=== PATIENT | male | born 1945 | race Caucasian/White ===

== ENCOUNTER 2022-09-30 12:34 | Emergency (ER) | payer MEDICARE, OTHER ==
--- NOTE | 2022-09-30 16:31 | ED Physician Documentation ---
History of Present Illness - Stated complaint Stated Complaint: CELLULITIS/EDEMA - Chief complaint Chief Complaint: Ext Problem - History obtained from History obtained from: Patient - Additonal information Additional information: 76-year-old gentleman presents for the evaluation of a painful and itchy rash has been going on for 10 to 15 years in both lower extremities that he thinks is cellulitis. He states that is worse when he eats acid such as vinegar or vitamin C. He was seen at the walk-in clinic last week and started on prednisone which she took for 3 days, but it made him have severe insomnia and anxiety which persists at this point despite stopping the prednisone. Review of Systems Constitutional: denies: Fever, Chills GI: reports: Reviewed and negative : reports: Reviewed and negative PD PAST MEDICAL HISTORY - Present Medications Home Medications: Ambulatory Orders Medication Instructions Recorded Confirmed diazePAM [Valium] 5 - 10 mg PO TID PRN #15 tablet 09/30/22 - Allergies Allergies/Adverse Reactions: Allergies Allergy/AdvReac Type Severity Reaction Status Date / Time Corticosteroids Allergy Unknown Verified 09/30/22 13:04 (Glucocorticoids) PD ED PE NORMAL - Vitals Vital signs reviewed: Yes - General General: Alert and oriented X 3, No acute distress - Extremities Extremities: Other (Venous stasis changes with dusky feet with 4-second capillary refill. Everything is symmetric in the lower extremities, shiny skin and varicosities to both lower extremities.) - Neuro Neuro: Alert and oriented X 3, Normal speech Results - Vitals Vitals: Vital Signs - 24 hr 09/30/22 09/30/22 12:58 16:43 Temperature 36.5 C 36.6 C Heart Rate 72 75 Respiratory 16 16 Rate Blood Pressure 145/88 H 143/82 H O2 Saturation 100 98 Oxygen O2 Source Room air PD MEDICAL DECISION MAKING - ED course ED course: 76-year-old gentleman presents for insomnia related to prednisone and what he thinks is cellulitis but is actually more consistent with venous stasis changes. I recommended topical steroids which she declined based on side effects and needed something for sleep having had Valium in the past which worked well for him. Discussed need for follow-up with vascular surgery. Departure - Departure Disposition: 01 Home, Self Care Clinical Impression: Venous stasis, Insomnia Condition: Good Record reviewed to determine appropriate education?: Yes Instructions: Chronic Venous Insufficiency Prescriptions: diazePAM [Valium] 5 - 10 mg PO TID PRN #15 tablet PRN Reason: Spasms Comments: You were seen today for the problem in your legs which based on your history and physical is more consistent with venous stasis changes than an infection. You declined topical steroids given your previous side effects with those and that is not unreasonable. Try to elevate them as much as possible and I did prescribe some Valium for sleep which I sent to the [facility] in [place] electronically. You should probably follow-up with a vascular surgeon such as the [facility], the phone number is [phone] mi [phone], call tomorrow for the next available appointment. Return for new or worsening symptoms. Do not drink or drive while taking Valium. Discharge Date/Time: 09/30/22 16:43
[2022-09-30 16:45] VITALS: BP 143/82
== END 2022-09-30 16:43 | disposition home or self-care (01) ==
LOC: ED 12:34
DX: I87.8 Other specified disorders of veins (principal); G47.00 Insomnia, unspecified
CPT/HCPCS: 99283

== ENCOUNTER → 2022-09-30 | Outpatient (CLI) | payer MEDICARE, OTHER | END | disposition critical access hospital (66) | LOC: EMS 11:53 | DX: M79.89 Other specified soft tissue disorders (principal); R60.0 Localized edema; M79.605 Pain in left leg; M79.604 Pain in right leg; L29.9 Pruritus, unspecified; Z72.820 Sleep deprivation | CPT/HCPCS: A0425; A0429 ==

== ENCOUNTER 2022-10-16 08:00 | Outpatient (CLI) | payer MEDICARE, OTHER | END 2022-10-16 23:59 | disposition home or self-care (01) | LOC: LAB 08:00 | PROVIDERS: ATTEND Nurse Practitioner | DX: R33.9 Retention of urine, unspecified (principal) | CPT/HCPCS: 87086 ==

== ENCOUNTER 2022-10-16 16:29 | Emergency (ER) | payer MEDICARE, OTHER ==
--- NOTE | 2022-10-16 16:47 | ED Physician Documentation ---
PD HPI MALE - Stated complaint Stated Complaint: M - Chief complaint Chief Complaint: General - History obtained from History obtained from: Patient - History of Present Illness Timing - onset: How many days ago (12) Timing - duration: Days (12) Timing - details: Abrupt onset, Still present Associated symptoms: Unable to urinate (he had had weak stream and urinated small amounts over the past few months, but had sudden urinary retention after getting outpt CT abd/pelvis with IV contrast 12 days ago at [facility] [place]. Had townsend placed then and was in until this morning, when it was removed. The patient has only had mild dribbles.). No: Dysuria Similar symptoms before: Diagnosis (presumed enlarged prostate.) Review of Systems Constitutional: denies: Fever, Chills Nose: denies: Rhinorrhea / runny nose, Congestion Throat: denies: Sore throat Respiratory: denies: Cough Skin: denies: Rash, Lesions PD PAST MEDICAL HISTORY - Past Medical History : Benign prostate hypertrophy - Present Medications Home Medications: Ambulatory Orders Medication Instructions Recorded Confirmed diazePAM [Valium] 5 - 10 mg PO TID PRN #15 tablet 09/30/22 - Allergies Allergies/Adverse Reactions: Allergies Allergy/AdvReac Type Severity Reaction Status Date / Time citric acid Allergy Unknown Verified 10/16/22 16:39 Corticosteroids Allergy Unknown Verified 10/16/22 16:39 (Glucocorticoids) PD ED PE NORMAL - Vitals Vital signs reviewed: Yes - General General: Alert and oriented X 3, No acute distress, Well developed/nourished - Cardiac Cardiac: RRR, No murmur - Respiratory Respiratory: Clear bilaterally - Abdomen Abdomen: Normal bowel sounds, Soft, Non distended, No organomegaly, Other (some tenderness and fullness in suprapubic area/bladder without guarding. ) Results - Vitals Vitals: Vital Signs - 24 hr 10/16/22 10/16/22 16:34 18:17 Temperature 36.9 C 36.1 C L Heart Rate 80 65 Respiratory 18 18 Rate Blood Pressure 167/85 H 156/76 H O2 Saturation 99 98 Oxygen O2 Source Room air PD Medical Decision Making - ED course Complexity details: considered differential (had townsend in and removed this morning at consultation of Urology. Unable to urinate again.Had Rx for Flomax, but not taking it regularly. ), d/w patient Departure - Departure Disposition: 01 Home, Self Care Clinical Impression: Acute urinary retention Condition: Stable Record reviewed to determine appropriate education?: Yes Comments: Your Townsend catheter appears to be draining. There is no blood or clots coming out at this time. Assumedly your trouble urinating is coming from either an enlargement of the prostate or just a dysfunction of the muscle of the bladder having had the previous catheter in for a while. Talk to your urologist about next steps for having it removed. Sometimes they will do bladder training we may have you clamp off the catheter and allow the bladder to fill and on fill to reestablish some of the muscle tone. Would make sense to be on the prostate medicine prescribed by your urologist for at least the next week or so. Nonprescription options for prostate can be saw woodrow or certainly continue with your 2nd pressman. Some more targeted medication for prostate enlargement may be useful in hopes of being able to remove the catheter subsequently and have better urine output. Discharge Date/Time: 10/16/22 18:27
[2022-10-16] MEDS ORDERED: LIDOCAINE 2% URO-JET 5 ML SYRINGE UR STA (17:08)
[2022-10-16 18:18] VITALS: BP 156/76
== END 2022-10-16 18:27 | disposition home or self-care (01) ==
LOC: ED 16:29
DX: R33.9 Retention of urine, unspecified (principal)
CPT/HCPCS: 99283

== ENCOUNTER 2022-10-30 09:00 | Outpatient (CLI) | payer MEDICARE, OTHER | END 2022-10-30 23:59 | disposition critical access hospital (66) | LOC: EMS 09:00 | DX: S61.512A Laceration without foreign body of left wrist, initial encounter (principal); X78.9XXA Intentional self-harm by unspecified sharp object, initial encounter; Y93.89 Activity, other specified | CPT/HCPCS: A0425; A0429 ==

== ENCOUNTER 2022-10-30 09:39 | Emergency (ER) | payer MEDICARE, OTHER ==
--- NOTE | 2022-10-30 10:11 | ED Physician Documentation ---
History of Present Illness - Stated complaint Stated Complaint: L WRIST LAC/MHE - Chief complaint Chief Complaint: MHE - Additonal information Additional information: Patient is 76-year-old male presenting to the emergency department with suicidal ideation and left wrist laceration. Presents via EMS after cutting his wrists With a razor blade. Reports he did this at approximately 4 AM. Reports that he has been feeling suicidal frequently for the last month. States he has had increasing physical and mental health issues ongoing since September of this year including multiple episodes of acute urinary obstruction requiring catheter p lacement, as well as worsening insomnia at home. Reports that he lives with a roommate but that most of his family is in [place]. Denies previous hospitalizations for psychiatric issues or previous suicide attempts. Denies alcohol and drug abuse. Review of Systems Unable to obtain: Other (Psychiatric disturbance) PD PAST MEDICAL HISTORY - Present Medications Home Medications: Ambulatory Orders Medication Instructions Recorded Confirmed diazePAM [Valium] 5 - 10 mg PO TID PRN #15 tablet 09/30/22 - Allergies Allergies/Adverse Reactions: Allergies Allergy/AdvReac Type Severity Reaction Status Date / Time citric acid Allergy Unknown Verified 10/30/22 10:26 Corticosteroids Allergy Unknown Verified 10/30/22 10:26 (Glucocorticoids) PD ED PE NORMAL - General General: Alert and oriented X 3, No acute distress, Well developed/nourished - HEENT HEENT: Atraumatic, PERRL - Neck Neck: Supple, no meningeal sign - Cardiac Cardiac: RRR - Respiratory Respiratory: No respiratory distress - Derm Derm: Normal color - Extremities Extremities: No deformity, No tenderness to palpate, No edema, No calf tenderness / cord, Other (9 cm laceration over the left wrist.) - Neuro Neuro: Alert and oriented X 3, physician assistant certified 2-12 intact, No motor deficit, Normal speech - Psych Psych: Other (Patient endorses for suicidality and depression as well as insomnia. Demonstrates flat affect. Does not appear to be internally fixated. Denies auditory or visual hallucinations.) Results - Vitals Vitals: Vital Signs - 24 hr 10/30/22 09:48 Temperature 36.6 C Heart Rate 77 Respiratory 18 Rate Blood Pressure 130/76 O2 Saturation 97 Oxygen O2 Source Room air - Labs Labs: Laboratory Tests 10/30/22 10/30/22 10/30/22 10:20 10:23 10:23 WBC 10.5 RBC 4.36 L Hgb 12.8 L Hct 39.4 L MCV 90.4 MCH 29.4 MCHC 32.5 RDW 13.9 Plt Count 220 MPV 10.6 Neut # (Auto) 8.6 H Lymph # (Auto) 0.8 L Blanco # (Auto) 0.9 Eos # (Auto) 0.0 Baso # (Auto) 0.0 Absolute Nucleated RBC 0.00 Nucleated RBC % 0.0 Sodium 134 L Potassium 4.5 Chloride 98 L Carbon Dioxide 28 Anion Gap 8.0 BUN 16 Creatinine 0.8 Estimated GFR (MDRD) 94 Glucose 124 H Calcium 8.8 Magnesium 2.3 Total Bilirubin 1.2 H AST 24 ALT 29 Alkaline Phosphatase 49 CK-MB (CK-2) Total Protein 6.5 L Albumin 3.8 Globulin 2.7 Albumin/Globulin Ratio 1.4 Lipase 26 TSH Urine Color Urine Clarity Urine pH Ur Specific Graham Urine Protein Urine Glucose (UA) Urine Ketones Urine Occult Blood Urine Nitrite Urine Bilirubin Urine Urobilinogen Ur Leukocyte Esterase Ur Microscopic Review Urine Culture Comments Nasal Adenovirus (PCR) NOT DETECTED Nasal B. parapertussis DNA (PCR) NOT DETECTED Nasal Coronavir 229E PCR NOT DETECTED Nasal Coronavir HKU1 PCR NOT DETECTED Nasal Coronavir NL63 PCR NOT DETECTED Nasal Coronavir OC43 PCR NOT DETECTED Nasal Enterovir/Rhinovir PCR NOT DETECTED Nasal Influenza B PCR NOT DETECTED Nasal Influenza A PCR NOT DETECTED Nasal Parainfluen 1 PCR NOT DETECTED Nasal Parainfluen 2 PCR NOT DETECTED Nasal Parainfluen 3 PCR NOT DETECTED Nasal Parainfluen 4 PCR NOT DETECTED Nasal RSV (PCR) NOT DETECTED Nasal B.pertussis DNA PCR NOT DETECTED Nasal C.pneumoniae (PCR) NOT DETECTED Magdiel Human Metapneumo PCR NOT DETECTED Nasal M.pneumoniae (PCR) NOT DETECTED Nasal SARS-CoV-2 (PCR) NOT DETECTED Urine Opiates Screen Ur Oxycodone Screen Urine Methadone Screen Ur Propoxyphene Screen Ur Barbiturates Screen Ur Tricyclics Screen Ur Phencyclidine Scrn Ur Amphetamine Screen U Methamphetamines Scrn U Benzodiazepines Scrn Urine Cocaine Screen U Cannabinoids Screen Ethyl Alcohol < 5.0 10/30/22 10/30/22 10/30/22 10:23 10:23 11:55 WBC RBC Hgb Hct MCV MCH MCHC RDW Plt Count MPV Neut # (Auto) Lymph # (Auto) Blanco # (Auto) Eos # (Auto) Baso # (Auto) Absolute Nucleated RBC Nucleated RBC % Sodium Potassium Chloride Carbon Dioxide Anion Gap BUN Creatinine Estimated GFR (MDRD) Glucose Calcium Magnesium Total Bilirubin AST ALT Alkaline Phosphatase CK-MB (CK-2) 2.3 Total Protein Albumin Globulin Albumin/Globulin Ratio Lipase TSH 0.92 Urine Color YELLOW Urine Clarity CLEAR Urine pH 7.0 Ur Specific Graham 1.020 Urine Protein NEGATIVE Urine Glucose (UA) NEGATIVE Urine Ketones NEGATIVE Urine Occult Blood NEGATIVE Urine Nitrite NEGATIVE Urine Bilirubin NEGATIVE Urine Urobilinogen 0.2 (NORMAL) Ur Leukocyte Esterase NEGATIVE Ur Microscopic Review NOT INDICATED Urine Culture Comments NOT INDICATED Nasal Adenovirus (PCR) Nasal B. parapertussis DNA (PCR) Nasal Coronavir 229E PCR Nasal Coronavir HKU1 PCR Nasal Coronavir NL63 PCR Nasal Coronavir OC43 PCR Nasal Enterovir/Rhinovir PCR Nasal Influenza B PCR Nasal Influenza A PCR Nasal Parainfluen 1 PCR Nasal Parainfluen 2 PCR Nasal Parainfluen 3 PCR Nasal Parainfluen 4 PCR Nasal RSV (PCR) Nasal B.pertussis DNA PCR Nasal C.pneumoniae (PCR) Magdiel Human Metapneumo PCR Nasal M.pneumoniae (PCR) Nasal SARS-CoV-2 (PCR) Urine Opiates Screen NEGATIVE Ur Oxycodone Screen NEGATIVE Urine Methadone Screen NEGATIVE Ur Propoxyphene Screen NEGATIVE Ur Barbiturates Screen NEGATIVE Ur Tricyclics Screen NEGATIVE Ur Phencyclidine Scrn NEGATIVE Ur Amphetamine Screen NEGATIVE U Methamphetamines Scrn NEGATIVE U Benzodiazepines Scrn NEGATIVE Urine Cocaine Screen NEGATIVE U Cannabinoids Screen NEGATIVE Ethyl Alcohol Procedures - Laceration (location) Upper extremity Length in cm: 9 Wound type: Linear, Into subcut fat Neurovascular status: Sensory intact, Motor intact, Vascular intact Tendon involvement: Tendon intact Anesthesia: Lidocaine 2% with epi Wound preparation: Betadine Skin layer closure: Nylon (3-0), Sutures - enter # (13) Other: Patient tolerated well, No complications, Neurovascular intact, Dressing applied, Tetanus booster given PD Medical Decision Making - ED course Complexity details: reviewed results, re-evaluated patient, d/w patient, d/w oracle application consultant ED course: Patient is a 76-year-old male presenting to the emergency department with laceration to left wrist and active suicidal ideation. Afebrile, hemodynamically stable. A prominent laceration to the left wrist however patient had easily palpable radial and ulnar pulses and normal and full and complete range of motion at the wrist, fingers and hands. The wound was cleaned and repaired as outlined in the procedure note above. Comprehensive labs were obtained which were all generally within normal limits or nonactionable. EKG per my interpretation was nonacute. Patient was evaluated by telepsychiatry who did recommend inpatient care. Patient was not amenable to this and DCR was consulted. After discussing his care with DCR patient will be detained Pending regional bed search. I have ordered for 12.5 mg Seroquel 3 times daily to help with anxiety or insomnia in consultation with the telemetry psychiatric service. I will be signing out the patient, please see their documentation for further detail.
[2022-10-30] MEDS ORDERED: LIDOCAINE 1%-EPI 1:100000 10 ML MDV SUBQ STA (10:21)
[2022-10-30 10:29] LABS: BASOPHILS % (AUTO) 0.4 %; EOSINOPHILS % (AUTO) 0.1 %; HCT - HEMATOCRIT 39.4 % (42.0-52.0); HGB - HEMOGLOBIN 12.8 g/dL (14.0-18.0); LYMPHOCYTES # (AUTO) 0.8 10^3/uL (1.5-3.5); LYMPHOCYTES % (AUTO) 7.6 %; MEAN CORPUSCULAR HEMOGLOBIN 29.4 pg (27.0-31.0); MEAN CORPUSCULAR HGB CONC 32.5 g/dL (32.0-36.0); MEAN CORPUSCULAR VOLUME 90.4 fL (80.0-94.0); MEAN PLATELET VOLUME 10.6 fL (7.4-11.4); MONOCYTES # (AUTO) 0.9 10^3/uL (0.0-1.0); NEUTROPHILS # (AUTO) 8.6 10^3/uL (1.5-6.6); NEUTROPHILS % (AUTO) 82.1 %; PLT - PLATELET COUNT 220 10^3/uL (130-450); RED BLOOD COUNT 4.36 10^6/uL (4.70-6.10); RED CELL DISTRIBUTION WIDTH 13.9 % (12.0-15.0); WHITE BLOOD COUNT 10.5 x10^3/uL (4.8-10.8)
[2022-10-30] MEDS ORDERED: lidocaine 1% 20 ML MDV ONE (10:29)
[2022-10-30] MEDS ORDERED: LIDOCAINE MPF 2%-EPI 1:200000 20 ML VIAL ONE (10:30)
[2022-10-30 10:42] LABS: ALBUMIN 3.8 g/dL (3.2-5.5); ALBUMIN/GLOBULIN RATIO 1.4 (1.0-2.2); ALKALINE PHOSPHATASE 49 IU/L (42-121); ALT ALANINE AMINOTRANSFERASE 29 IU/L (10-60); AST ASPARTATE AMINOTRANSFERASE 24 IU/L (10-42); BILIRUBIN,TOTAL 1.2 mg/dL (0.2-1.0); BUN - BLOOD UREA NITROGEN 16 mg/dL (6-20); CALCIUM 8.8 mg/dL (8.5-10.3); CARBON DIOXIDE - CO2 28 mmol/L (21-32); CHLORIDE 98 mmol/L (101-111); CREATININE 0.8 mg/dL (0.6-1.2); ETOH - ETHANOL < 5.0 mg/dL; GFR - MDRD 94 (>89); GLUCOSE 124 mg/dL (70-100); LIPASE 26 U/L (22-51); MAGNESIUM 2.3 mg/dL (1.7-2.8); POTASSIUM 4.5 mmol/L (3.5-5.0); SODIUM 134 mmol/L (135-145); TOTAL PROTEIN 6.5 g/dL (6.7-8.2)
--- NOTE | 2022-10-30 10:53 | XRAY Report ---
PROCEDURE: Wrist 3 View LT INDICATIONS: Wrist laceration TECHNIQUE: 3 views of the wrist were acquired. COMPARISON: None FINDINGS: Bones: Moderate to severe first CMC joint osteoarthritic changes are seen. Moderate scaphotrapezial j oint osteoarthritic changes also noted. No acute fracture or dislocation. No suspicious bony lesions. Scaphoid view: No evidence of avascular necrosis is seen. Soft tissues: No suspicious soft tissue calcifications. 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 No acute wrist fracture or dislocation. No radiopaque foreign bodies. Reviewed by: Devin Snyder MD on 10/30/2022 10:52 AM PST Approved by: Devin Snyder MD on 10/30/2022 10:52 AM PST Station ID: [id number]
[2022-10-30 11:18] LABS: B. PARAPERTUSSIS- RESP PCR PAN NOT DETECTED; B. PERTUSSIS- RESP PCR PANEL NOT DETECTED; C. PNEUMONIAE- RESP PCR PANEL NOT DETECTED; CORONAVIRUS 229E-RESP PCR NOT DETECTED; CORONAVIRUS HKU1-RESP PCR NOT DETECTED; CORONAVIRUS NL63-RESP PCR NOT DETECTED; CORONAVIRUS OC43-RESP PCR NOT DETECTED; HUMAN METAPNEUMOVIRUS NOT DETECTED; INFLUENZA A- RESP PCR PANEL NOT DETECTED; INFLUENZA B - RESP PCR PANEL NOT DETECTED; M. PNEUMONIAE- RESP PCR PANEL NOT DETECTED; PARAINFLUENZA VIRUS 1 NOT DETECTED; PARAINFLUENZA VIRUS 2 NOT DETECTED; PARAINFLUENZA VIRUS 3 NOT DETECTED; PARAINFLUENZA VIRUS 4 NOT DETECTED; RHINOVIRUS/ENTEROVIRUS NOT DETECTED; RSV- RESP PCR PANEL NOT DETECTED; SARS-CoV-2 -RESP PCR PANEL NOT DETECTED
[2022-10-30 11:59] LABS: MUDS CUTOFF CONCENTRATIONS CUTOFF CONC BELOW:
[2022-10-30 12:04] LABS: BILIRUBIN,URINE NEGATIVE (NEGATIVE); GLUCOSE, URINE (UA) NEGATIVE (NEGATIVE); KETONES,URINE (UA) NEGATIVE (NEGATIVE); LEUKOCYTE ESTERASE, URINE NEGATIVE (NEGATIVE); NITRITE,URINE NEGATIVE (NEGATIVE); OCCULT BLOOD,URINE NEGATIVE (NEGATIVE); PROTEIN,URINE NEGATIVE (NEGATIVE); UROBILINOGEN,URINE 0.2 (NORMAL) E.U./dL (NORMAL)
[2022-10-30 12:05] LABS: CLARITY,URINE CLEAR (CLEAR)
[2022-10-30] MEDS ORDERED: BACITRACIN ZINC OINT 1 PACKET TOP STA (12:09)
[2022-10-30 12:13] LABS: AMPHETAMINE SCREEN,URINE NEGATIVE (NEGATIVE); BARBITURATE SCREEN,UR NEGATIVE (NEGATIVE); BENZODIAZEPINES SCREEN, URINE NEGATIVE (NEGATIVE); COCAINE SCREEN URINE NEGATIVE (NEGATIVE); METHADONE SCREEN, URINE NEGATIVE (NEGATIVE); METHAMPHETAMINES SCREEN, URINE NEGATIVE (NEGATIVE); OPIATE SCREEN, URINE NEGATIVE (NEGATIVE); OXYCODONE SCREEN, URINE NEGATIVE (NEGATIVE); PROPOXYPHENE SCREEN, URINE NEGATIVE (NEGATIVE); THC CANNABINOID SCREEN, URINE NEGATIVE (NEGATIVE); TRICYCLIC ANTIDEPRESSANT,URINE NEGATIVE (NEGATIVE)
--- NOTE | 2022-10-30 14:41 | TELEPSYCH PHYS NOTE ---
Telepsych Consultation Note Consult: Name: Tariq LynchDOB: 1945 DateandTime: 10/30/2022 4:34:37 PM Location of the patient: [facility] EDLocation of the doctor: [place] Length of consult: 50 minutes This evaluation was conducted via video telepsychiatry with the assistance of onsite staff Reason for consult: Suicide attempt Requested by: ED attending provider History of Present Illness: Chart reviewed and appreciated, pt was seen by [facility] specialist Tracy Torre. 76 y/o male with unclear psychiatric history, presenting to ED after suicide attempt via cutting wrist with razor blade. Per notes, laceration measured 9 cm, went into subcutaneous fat layer and required sutures. On interview, pt reports having suicidal thoughts for about the past 4- 6 weeks. Reports having "really really really bad luck" with a lot of medical issues and other stressors, everything seemed to be going wrong for him. No specific details provided other than having a problem with his legs, took steroids and it did not help. Pt reports remote history of panic attacks, and these returned in setting of all of the recent stress. "I feel like I've gotta work myself back to who I used to be". States that the ongoing panic led into severe depression and suicidal thoughts. Pt reports that on top of this, he has had severe insomnia, with frequently not sleeping at all. Last night got no sleep, night before that got 2 hours, night before that was sleepless as well. Pt has used melatonin, chamomile, tylenol. This worked at first but then stopped working. Pt also tried small amount of marijuana one night at recommendation of a friend, but still did not help with sleep. He tried more the next night and it actually caused worsening depression, though eventually he did get a few hours of sleep. Pt later regretted doing this, then panicked about that. Regarding the attempt, pt reports it was impulsive and states, "it made sense at the time because I was so desperate". However, pt states that doing it made him realize he does not want to and regrets this "stupid decision". Pt reports that he called 911 himself. Pt denies current suicidal thoughts. Denies homicidal ideations or hallucinations. Pt understands that he went too far, would be possibly willing to try medication but states that he would like to go home. Collateral Contacted: [place] for not contacting the collateral:Patient meets criteria for admission Sleep issues?: YesSleep Quantity:Variable but 0-3 hours per night recently. Sleep Quality:Poor Psychiatric History/Treatment History: Past diagnoses: History of panic attacks, "long history of just being hypersensitive". Pt also notes sensitivity to a lot of medications, has had adverse reactions to a lot of meds including notably Trazodone. Hospitalizations: YesDescription:One admission in 1971 for panic attack, "didn't know what it was, thought I was going crazy", stayed only one night. Current Treatment:No Suicide Assessment: PSS-3: 1) Over the past 2 weeks have you felt down, depressed or hopeless?Yes 2) Over the past 2 weeks have you had thoughts of killing yourself?Yes 3) Have you ever in your life attempted to kill yourself?Yes Within the past 6 months?Yes Description:Cut wrist early this morning. PSS-3 Secondary Screen: 1) Positive on PSS-3 questions 2 & 3 active SI with a past attempt?Yes 2) Have you been thinking about how you might kill yourself?Yes 3) Have you had some intention of acting on your thoughts?Yes 4) Lifetime psychiatric hospitalization?Yes 5) Has drinking or substance abuse ever been a problem for you?No 6) Current irritability, agitation, or aggression?No PSS-3 Secondary Screen Scoring: Severe Notes: Score of 4 but severe due to attempt. Mild(0-2) No current attempt and no plan/intent Moderate(3-4) No current attempt, Plan OR intent but not both Severe(5-6) Current Attempt with Plan AND intent [facility] Safety Assessment: Risk Factors Stressors: Pt reports multiple stressors related to health, personal issues, also return of panic attacks. Attempts/Self-injury: YesDescription:Reports "half-hearted attempt" to cut wrist in 1969's, "hardly pierced the skin". Pt also cut wrist early this morning in suicide attempt. Impulsivity:YesDescription:Impulsively attempted suicide today but reports typically not impulsive, though is "emotional". Drug/Alcohol History:YesDescription:Denies alcohol use typically but had some amaretto this morning. Denies drug use other than trying marijuana twice recently for insomnia. Trauma History:No Access to firearms:No HI/Violence/Property destruction:No Legal: YesDescription:Was arrested during a protest many years ago, charged with disturbing the peace, spent one night in residential and then charges were dropp ed. Family Psych History:No Family History of suicide:No Protective Factors: Can handle stress well?No Description:Reports increased anxiety as he has gotten older, and lately trouble coping with multiple stressors. Zoroastrianism?Yes Description:Lutheran. External: Social supports/ Therapeutic relationships: YesDescription:One local friend, also a good friend who lives in [place]. Relationship history: , has no children. Living situation: Lives with a friend. 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 Education: PhD. Responsibility to family/children/work: YesDescription:Household. Future orientation:YesDescription:Wants to move to [place] to live in a [place] community with friends. 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 Pt reports multiple medication intolerances in the past. Mental Status Exam: Appearance and Attire:Well groomed, Appears stated age, Bandage noted on wrist/forearm Psychomotor agitation:No abnormality Attitude and behavior:Cooperative, Calm, Pleasant, Good eye contact Speech:No abnormality, Mood:"Much better"; appears depressed Affect:Reactive, oddly bright at times with regard to current situation Thought process:Linear, Logical, Goal-directed Thought content:Pt denies current SI or HI Perception:No hallucinations Intel:Average Abstract:Appropriate Language:No abnormality Orientation:Oriented x 4 Sense:Normal Knowledge:Appropriate for education and socioeconomic status Memory:Intact Insight:Failure to recognize benefits of treatment Judgement:Impaired in response and decision making, Impaired in responses to current situation and behavior Gait:Not assessed Impression/Risk Assessment: Current Suicide Risk Elevated?Yes Current Violence Risk Elevated?No Issues with ability to care for self?No Summary: 76 y/o male with remote history of panic attacks, one past psych admission and one prior suicidal gesture, presenting to ED after cutting his wrist in a suicide attempt. The cut was long, significantly deep and required sutures. Pt reports worsening anxiety and depression in recent months, with SI for the past 4-6 weeks. Attempt was not planned and pt reports regret for his actions, denies current SI or HI. However, pt has minimal local support, no outpatient treatment, ongoing external stressors, and no current safety plan. Pt has had severe insomnia which is ongoing, as well as frequent panic attacks which are untreated and per pt report led to the depression/SI. Pt appears to be minimizing ongoing risk factors, and in setting of serious attempt pt remains at elevated risk of danger to self, is not safe for discharge at this time. Diagnosis: F41.9 Anxiety disorder, unspecified , F43.23 Adjustment disorder with mixed anxiety and depressed mood; Rule out depressive disorder CPT Codes: 13185 - Psychiatric Diagnostic Evaluation with Medical Services Treatment Plan: General: Recommend inpatient psychiatric admission for safety/stabilization. Pt is not agreeable so will need DCR referral to assess for possible involuntary admission. Level of Care: Psychiatric admission Psychiatric Clearance: No Observation level 1:1 needed?: YesNotes:Constant observation per ED protocol Pharmacological: If pt is detained for treatment, recommend Seroquel 12.5 mg TID prn anxiety/insomnia. Pt reports tolerability issues with multiple meds in the past so starting low dose. However, if well tolerated but not effective for insomnia, would increase to 12.5 mg BID prn anxiety and 25 mg qHS prn insomnia. Patient psychotic?No Therapy: N/A Follow up needed while in the hospital?: NA Discussed plan with onsite customer care team coach: Yes Who Dr. Moe Cortez MD List names and roles of persons who participated in consult: DO. Vicki Hope ED staff
[2022-10-30] MEDS ORDERED: ACETAMINOPHEN 500 MG TABLET PO PRN (21:31)
[2022-10-30] MEDS: QUEtiapine 25 MG TABLET PO PRN (22:30)
[2022-10-31] MEDS: QUEtiapine 25 MG TABLET PO PRN (10:52)
--- NOTE | 2022-10-31 13:10 | ED Physician Documentation ---
ED Addendum - Addendum Addendum: 10/31/22 13:08 76-year-old Tariq Lynch has a past history of anxiety and depression and remote history of attempted suicide. He has had a difficult time with insomnia over the past 6 weeks and the events happening that resulted in worsening of his anxiety. He had a serious suicide attempt with a knife and called 911 for rescue. He takes this himself as a good sign. He no longer feels suicidal and he feels much improved after getting some sleep after taking the recommended do se of Seroquel. The telepsych psychiatrist recommended inpatient psychiatric treatment because there were no resources available for the patient. She was unaware of the resources available. The social science teacher has contacted the patient's roommate and a third-republican who assist the patient with supplies. They were both agreeing to help with observation of Tariq and a safety plan. Tariq is very much interested in this and the safety plan would like to go home. We are able to make a safety plan with the patient and his roommates and we will E scribe his Seroquel to the [facility] in [place]. He does have a physician for follow-up. 10/31/22 13:10 10/31/22 13:16 Impression: Anxiety with suicidal ideation, insomnia, and wrist laceration. Plan: The patient is discharged to home in the care of his roommate with a safety plan developed by the social science teacher. He is instructed to have the sutures removed removed in 7 to 10 days and he was given a prescription for Seroquel to be taken 12 and half milligrams as often as 3 times per day. We will follow-up with his primary Caitlin Wilcox
[2022-10-31 15:02] VITALS: BP 149/78
== END 2022-10-31 15:11 | disposition home or self-care (01) ==
LOC: EDUNIT# → ED 09:39
DX: T14.91XA Suicide attempt, initial encounter (principal); S61.512A Laceration without foreign body of left wrist, initial encounter; X78.8XXA Intentional self-harm by other sharp object, initial encounter; Y93.89 Activity, other specified; F41.9 Anxiety disorder, unspecified; G47.00 Insomnia, unspecified
CPT/HCPCS: 12004; 36415; 73110; 80053; 80306; 81003; 82553; 83690; 83735; 84443; 85025; 87633; 93005; 99284; 99285; A9270; G0426; G0480; Q3014; 80320; 81001; 87086; 90834

== ENCOUNTER 2022-11-03 07:58 | Emergency (ER) | payer MEDICARE, OTHER ==
[2022-11-03 08:22] VITALS: BP 133/63
[2022-11-03 08:29] LABS: BASOPHILS % (AUTO) 0.4 %; EOSINOPHILS # (AUTO) 0.3 10^3/uL (0.0-0.7); EOSINOPHILS % (AUTO) 4.7 %; HCT - HEMATOCRIT 36.9 % (42.0-52.0); HGB - HEMOGLOBIN 11.7 g/dL (14.0-18.0); LYMPHOCYTES % (AUTO) 18.7 %; MEAN CORPUSCULAR HEMOGLOBIN 29.1 pg (27.0-31.0); MEAN CORPUSCULAR HGB CONC 31.7 g/dL (32.0-36.0); MEAN CORPUSCULAR VOLUME 91.8 fL (80.0-94.0); MEAN PLATELET VOLUME 10.3 fL (7.4-11.4); MONOCYTES # (AUTO) 0.6 10^3/uL (0.0-1.0); MONOCYTES % (AUTO) 10.9 %; NEUTROPHILS # (AUTO) 3.5 10^3/uL (1.5-6.6); NEUTROPHILS % (AUTO) 63.8 %; PLT - PLATELET COUNT 204 10^3/uL (130-450); RED BLOOD COUNT 4.02 10^6/uL (4.70-6.10); RED CELL DISTRIBUTION WIDTH 14.1 % (12.0-15.0); WHITE BLOOD COUNT 5.5 x10^3/uL (4.8-10.8)
[2022-11-03 08:39] LABS: BILIRUBIN,URINE NEGATIVE (NEGATIVE); GLUCOSE, URINE (UA) NEGATIVE (NEGATIVE); KETONES,URINE (UA) NEGATIVE (NEGATIVE); LEUKOCYTE ESTERASE, URINE NEGATIVE (NEGATIVE); NITRITE,URINE NEGATIVE (NEGATIVE); OCCULT BLOOD,URINE MODERATE (NEGATIVE); PH,URINE 6.5 PH (5.0-7.5); PROTEIN,URINE NEGATIVE (NEGATIVE); UROBILINOGEN,URINE 0.2 (NORMAL) E.U./dL (NORMAL)
[2022-11-03 08:44] LABS: ALBUMIN 3.7 g/dL (3.2-5.5); ALBUMIN/GLOBULIN RATIO 1.5 (1.0-2.2); BILIRUBIN,TOTAL 1.1 mg/dL (0.2-1.0); CALCIUM 8.2 mg/dL (8.5-10.3); CREATININE 0.7 mg/dL (0.6-1.2); POTASSIUM 3.7 mmol/L (3.5-5.0); TOTAL PROTEIN 6.2 g/dL (6.7-8.2)
[2022-11-03 08:49] LABS: CLARITY,URINE HAZY (CLEAR); WBC CLUMPS,URINE PRESENT
[2022-11-03 08:50] LABS: BACTERIA,URINE Moderate /HPF (None Seen); SQUAMOUS EPITHELIAL CELL,UR NONE SEEN (<= Few)
[2022-11-03] MEDS ORDERED: cefTRIAXone 1 GM in SODIUM CHLORIDE 0.9% MINIBAG 100 ML IV STA (09:07)
--- NOTE | 2022-11-03 09:28 | ED Physician Documentation ---
History of Present Illness - Stated complaint Stated Complaint: MALE - Chief complaint Chief Complaint: General - History obtained from History obtained from: Patient - Additonal information Additional information: Pt is a 76 yo M presenting for evaluation of difficulty urinating since this morning. He has recent history of urinary retention and has been without a catheter for several weeks. He noted dysuria starting yesterday and was able to urinate overnight but not this AM. He feels the urge to urinate. Denies fever, flank pain, vomiting. Review of Systems Constitutional: denies: Fever Cardiac: denies: Chest pain / pressure Respiratory: denies: Dyspnea GI: reports: Abdominal Pain (suprapubic) : reports: Unable to Void Musculoskeletal: denies: Back pain PD PAST MEDICAL HISTORY - Past Medical History Past Medical History: Yes Cardiovascular: None Respiratory: None Neuro: None Endocrine/Autoimmune: None GI: None : Retention HEENT: None Psych: Anxiety, Other Musculoskeletal: None Derm: None - Past Surgical History Past Surgical History: Yes General: Other - Present Medications Home Medications: Ambulatory Orders Medication Instructions Recorded Confirmed QUEtiapine [SEROquel] 12.5 mg PO TID PRN #20 tablet 10/31/22 11/03/22 Cefuroxime Axetil [Cefuroxime] 500 mg PO BID #14 tablet 11/03/22 Tamsulosin [Flomax] 0.4 mg PO DAILY #14 cap 11/03/22 - Allergies Allergies/Adverse Reactions: Allergies Allergy/AdvReac Type Severity Reaction Status Date / Time citric acid Allergy Unknown Verified 11/03/22 08:03 Corticosteroids Allergy Unknown Verified 11/03/22 08:03 (Glucocorticoids) - Social History Does the pt smoke?: No Smoking Status: Never smoker Does the pt drink ETOH?: No Does the pt have substance abuse?: No - Immunizations Immunizations are current?: No Immunizations: TDAP >10years/unknown, Other immun not current - POLST Patient has POLST: No PD ED PE NORMAL - General General: Alert and oriented X 3, No acute distress, Well developed/nourished - HEENT HEENT: Atraumatic - Neck Neck: Supple, no meningeal sign - Cardiac Cardiac: RRR - Respiratory Respiratory: No respiratory distress - Abdomen Abdomen: Soft, Non distended, Other (mild suprapubic ttp) - Back Back: No CVA TTP Results - Vitals Vitals: Vital Signs - 24 hr 11/03/22 11/03/22 08:03 08:22 Temperature 36.3 C L Heart Rate 92 80 Respiratory 18 18 Rate Blood Pressure 148/76 H 133/63 H O2 Saturation 99 100 Oxygen O2 Source Room air - Labs Labs: Laboratory Tests 11/03/22 11/03/22 11/03/22 08:21 08:21 08:30 WBC 5.5 RBC 4.02 L Hgb 11.7 L Hct 36.9 L MCV 91.8 MCH 29.1 MCHC 31.7 L RDW 14.1 Plt Count 204 MPV 10.3 Neut # (Auto) 3.5 Lymph # (Auto) 1.0 L Travis # (Auto) 0.6 Eos # (Auto) 0.3 Baso # (Auto) 0.0 Absolute Nucleated RBC 0.00 Nucleated RBC % 0.0 Sodium 135 Potassium 3.7 Chloride 100 L Carbon Dioxide 26 Anion Gap 9.0 BUN 13 Creatinine 0.7 Estimated GFR (MDRD) 110 Glucose 107 H Calcium 8.2 L Total Bilirubin 1.1 H AST 36 ALT 46 Alkaline Phosphatase 47 Total Protein 6.2 L Albumin 3.7 Globulin 2.5 Albumin/Globulin Ratio 1.5 Urine Color YELLOW Urine Clarity HAZY Urine pH 6.5 Ur Specific [place] 1.010 Urine Protein NEGATIVE Urine Glucose (UA) NEGATIVE Urine Ketones NEGATIVE Urine Occult Blood MODERATE H Urine Nitrite NEGATIVE Urine Bilirubin NEGATIVE Urine Urobilinogen 0.2 (NORMAL) Ur Leukocyte Esterase NEGATIVE Urine RBC 11-25 H Urine WBC 11-25 H Urine WBC Clumps PRESENT Ur Squamous Epith Cells NONE SEEN Urine Bacteria Moderate H Ur Microscopic Review INDICATED Urine Culture Comments INDICATED PD Medical Decision Making - ED course Complexity details: reviewed results, re-evaluated patient ED course: Pt with difficulty urinating found to have urinary retention. Does not appear septic. renal function at baseline. U/A suggests infection. Catheter placed and draining non bloody urine. Pt aware of need for antibiotics, [place] and f/u urology. Advised on return precautions. Departure - Departure Disposition: 01 Home, Self Care Clinical Impression: Acute urinary retention, UTI (urinary tract infection) Condition: Stable Instructions: ED UTI Cystitis Male Prescriptions: Cefuroxime Axetil [Cefuroxime] 500 mg PO BID #14 tablet Tamsulosin [Flomax] 0.4 mg PO DAILY #14 cap Comments: You have a urine infection and your bladder is not working properly. We have placed a catheter which should be kept in until you follow-up with your urologist. I would call the urologist office today to make an appointment to be seen in approximately 1 week.I have sent your prescriptions for an antibiotic as well as a medicine called Flomax to [facility] in [place]. Please make sure to complete the antibiotics. If you have any worsening symptoms such as trouble with your catheter, fevers or any other concerns please return to the emergency department. Discharge Date/Time: 11/03/22 10:26
== END 2022-11-03 10:26 | disposition home or self-care (01) ==
LOC: ED 07:58
DX: R33.9 Retention of urine, unspecified (principal); N39.0 Urinary tract infection, site not specified
CPT/HCPCS: 36415; 80053; 81001; 81003; 85025; 87086; 96365; 99284

== ENCOUNTER 2022-12-18 16:38 | Outpatient (CLI) | payer MEDICARE, OTHER | END 2022-12-18 16:39 | disposition EMS.NT | LOC: EMS 16:38 | DX: G47.00 Insomnia, unspecified (principal) ==

== ENCOUNTER 2022-12-18 18:22 | Emergency (ER) | payer MEDICARE, OTHER ==
[2022-12-18 18:47] LABS: BASOPHILS % (AUTO) 0.6 %; EOSINOPHILS # (AUTO) 0.1 10^3/uL (0.0-0.7); EOSINOPHILS % (AUTO) 0.8 %; HCT - HEMATOCRIT 39.6 % (42.0-52.0); HGB - HEMOGLOBIN 12.6 g/dL (14.0-18.0); LYMPHOCYTES # (AUTO) 1.4 10^3/uL (1.5-3.5); LYMPHOCYTES % (AUTO) 20.3 %; MEAN CORPUSCULAR HEMOGLOBIN 28.9 pg (27.0-31.0); MEAN CORPUSCULAR HGB CONC 31.8 g/dL (32.0-36.0); MEAN CORPUSCULAR VOLUME 90.8 fL (80.0-94.0); MEAN PLATELET VOLUME 10.8 fL (7.4-11.4); MONOCYTES # (AUTO) 0.6 10^3/uL (0.0-1.0); MONOCYTES % (AUTO) 8.7 %; NEUTROPHILS # (AUTO) 4.6 10^3/uL (1.5-6.6); PLT - PLATELET COUNT 237 10^3/uL (130-450); RED BLOOD COUNT 4.36 10^6/uL (4.70-6.10); RED CELL DISTRIBUTION WIDTH 13.4 % (12.0-15.0); WHITE BLOOD COUNT 6.7 x10^3/uL (4.8-10.8)
[2022-12-18 19:02] LABS: ACETAMINOPHEN < 10 ug/mL (10-30); ALBUMIN/GLOBULIN RATIO 1.6 (1.0-2.2); ALKALINE PHOSPHATASE 57 IU/L (42-121); ALT ALANINE AMINOTRANSFERASE 24 IU/L (10-60); AST ASPARTATE AMINOTRANSFERASE 27 IU/L (10-42); BILIRUBIN,TOTAL 0.8 mg/dL (0.2-1.0); BUN - BLOOD UREA NITROGEN 19 mg/dL (6-20); CALCIUM 9.1 mg/dL (8.5-10.3); CARBON DIOXIDE - CO2 26 mmol/L (21-32); CHLORIDE 102 mmol/L (101-111); CREATININE 0.8 mg/dL (0.6-1.2); ETOH - ETHANOL < 5.0 mg/dL; GFR - MDRD 94 (>89); GLUCOSE 107 mg/dL (70-100); LIPASE 36 U/L (22-51); POTASSIUM 3.7 mmol/L (3.5-5.0); SALICYLATE < 6.0 mg/dL; SODIUM 138 mmol/L (135-145); TOTAL PROTEIN 6.5 g/dL (6.7-8.2)
[2022-12-18 19:28] LABS: MUDS CUTOFF CONCENTRATIONS CUTOFF CONC BELOW:
[2022-12-18 19:30] LABS: BILIRUBIN,URINE NEGATIVE (NEGATIVE); GLUCOSE, URINE (UA) NEGATIVE (NEGATIVE); KETONES,URINE (UA) TRACE mg/dL (NEGATIVE); LEUKOCYTE ESTERASE, URINE NEGATIVE (NEGATIVE); NITRITE,URINE POSITIVE (NEGATIVE); OCCULT BLOOD,URINE TRACE-INTA (NEGATIVE); PROTEIN,URINE NEGATIVE (NEGATIVE); UROBILINOGEN,URINE 0.2 (NORMAL) E.U./dL (NORMAL)
[2022-12-18 19:32] LABS: CLARITY,URINE CLEAR (CLEAR)
[2022-12-18 19:41] LABS: AMPHETAMINE SCREEN,URINE NEGATIVE (NEGATIVE); BARBITURATE SCREEN,UR NEGATIVE (NEGATIVE); BENZODIAZEPINES SCREEN, URINE NEGATIVE (NEGATIVE); COCAINE SCREEN URINE NEGATIVE (NEGATIVE); METHADONE SCREEN, URINE NEGATIVE (NEGATIVE); METHAMPHETAMINES SCREEN, URINE NEGATIVE (NEGATIVE); OPIATE SCREEN, URINE NEGATIVE (NEGATIVE); OXYCODONE SCREEN, URINE NEGATIVE (NEGATIVE); PROPOXYPHENE SCREEN, URINE NEGATIVE (NEGATIVE); THC CANNABINOID SCREEN, URINE NEGATIVE (NEGATIVE); TRICYCLIC ANTIDEPRESSANT,URINE NEGATIVE (NEGATIVE)
[2022-12-18 19:50] LABS: BACTERIA,URINE Few /HPF (None Seen); RBC,URINE 0-5 /HPF (0-5); SQUAMOUS EPITHELIAL CELL,UR RARE Squamous (<= Few); WBC,URINE 0-3 /HPF (0-3)
--- NOTE | 2022-12-18 19:52 | ED Physician Documentation ---
History of Present Illness - Stated complaint Stated Complaint: MHE - Chief complaint Chief Complaint: MHE - Additonal information Additional information: 77-year-old male was brought to the emergency department by [facility]'s office under an JOHNNIE for concerns of aggressive emotional outbursts. The patient reports to me personally that over the last 3 months he has been having increasing anxiety and insomnia. He states that this all began after he was prescribed prednisone as well as a abx for a uti. pt states that before that he was a"regular jojo" Patient was hospitalized at the [facility] 11/15/2022 through 11/23/2022. He was admitted there because he was emotionally labile and had urges to self-harm. He had repeatedly informed staff that he had severe insomnia and despite taking Ambien was sleeping for only a few minutes at a time and often less than 2 to 3 hours a night. Patient had been seen in this emergency department mid October after cutting his wrists. Pt states that he is so anxious and scared that he often is emotionally labile. He admits to breaking his glasses in a fit of rage over the last few days. He is also been intermittently pounding screaming and yelling. His housemate has become fearful of his behavior which she states is unusual for him the patient therefore [facility] officers contacted patient today and he was brought in under an JOHNNIE with the hope of speaking with DCR. In the room the patient is hyperverbal. He keeps saying I am sorry I am sorry and states that he feels that he should be . He tells me that he is anxious but is fearful of taking medication though he has agreed to a small dose of Ativan if I believe it will help with his symptoms. Review of Systems Unable to obtain: Other PD PAST MEDICAL HISTORY - Past Medical History Past Medical History: Yes Cardiovascular: None Respiratory: None Neuro: None Endocrine/Autoimmune: None GI: None : Retention HEENT: None Psych: Anxiety, Other Musculoskeletal: None Derm: None - Past Surgical History Past Surgical History: Yes General: Other - Present Medications Home Medications: Ambulatory Orders Medication Instructions Recorded Confirmed QUEtiapine [SEROquel] 12.5 mg PO TID PRN #20 tablet 10/31/22 11/03/22 Cefuroxime Axetil [Cefuroxime] 500 mg PO BID #14 tablet 11/03/22 Tamsulosin [Flomax] 0.4 mg PO DAILY #14 cap 11/03/22 - Allergies Allergies/Adverse Reactions: Allergies Allergy/AdvReac Type Severity Reaction Status Date / Time citric acid Allergy Unknown Verified 11/03/22 08:03 Corticosteroids Allergy Unknown Verified 11/03/22 08:03 (Glucocorticoids) - Social History Does the pt smoke?: No Smoking Status: Never smoker Does the pt drink ETOH?: No Does the pt have substance abuse?: No - Immunizations Immunizations are current?: No Immunizations: TDAP >10years/unknown, Other immun not current - POLST Patient has POLST: No PD ED PE EXPANDED - General General: Alert, Disheveled, poorly kept, Anxious - Cardiac Cardiac: Regular Rate, Radial strong equal - Respiratory Respiratory: Clear to ausultation josephine. No: Distress, Labored - Derm Derm: Normal color, Warm and dry - Neuro Neuro: Alert and Oriented X 3, CNII-XII intact - GCS Eye Opening: Spontaneous Motor: Obeys Commands Verbal: Oriented Total: 15 - Psych Psych: Anxious, Agitated, Manic, Pressured speech. No: Auditory hallucinations, Visual hallucinations Results - Vitals Vitals: Vital Signs - 24 hr 12/18/22 12/18/22 12/18/22 18:25 18:32 22:05 Temperature 36.9 C Heart Rate 71 63 Respiratory 21 20 18 Rate Blood Pressure 174/93 H 163/61 H O2 Saturation 100 100 100 12/19/22 12/19/22 04:01 06:29 Temperature 36.5 C Heart Rate 74 72 Respiratory 16 16 Rate Blood Pressure 123/66 138/79 H O2 Saturation 100 100 Oxygen O2 Source Room air - Labs Labs: Microbiology 12/18/22 19:16 Urine Culture - Preliminary Urine,Clean Catch CULTURE IN PROGRESS. RESULTS TO FOLLOW. Laboratory Tests 12/18/22 12/18/22 12/18/22 18:38 18:38 18:38 WBC 6.7 RBC 4.36 L Hgb 12.6 L Hct 39.6 L MCV 90.8 MCH 28.9 MCHC 31.8 L RDW 13.4 Plt Count 237 MPV 10.8 Neut # (Auto) 4.6 Lymph # (Auto) 1.4 L Jack # (Auto) 0.6 Eos # (Auto) 0.1 Baso # (Auto) 0.0 Absolute Nucleated RBC 0.00 Nucleated RBC % 0.0 Sodium 138 Potassium 3.7 Chloride 102 Carbon Dioxide 26 Anion Gap 10.0 BUN 19 Creatinine 0.8 Estimated GFR (MDRD) 94 Glucose 107 H Calcium 9.1 Total Bilirubin 0.8 AST 27 ALT 24 Alkaline Phosphatase 57 Total Protein 6.5 L Albumin 4.0 Globulin 2.5 Albumin/Globulin Ratio 1.6 Lipase 36 TSH 1.10 Urine Color Urine Clarity Urine pH Ur Specific [place] Urine Protein Urine Glucose (UA) Urine Ketones Urine Occult Blood Urine Nitrite Urine Bilirubin Urine Urobilinogen Ur Leukocyte Esterase Urine RBC Urine WBC Ur Squamous Epith Cells Urine Bacteria Ur Microscopic Review Urine Culture Comments Nasal Adenovirus (PCR) Nasal B. parapertussis DNA (PCR) Nasal Coronavir 229E PCR Nasal Coronavir HKU1 PCR Nasal Coronavir NL63 PCR Nasal Coronavir OC43 PCR Nasal Enterovir/Rhinovir PCR Nasal Influenza B PCR Nasal Influenza A PCR Nasal Parainfluen 1 PCR Nasal Parainfluen 2 PCR Nasal Parainfluen 3 PCR Nasal Parainfluen 4 PCR Nasal RSV (PCR) Nasal B.pertussis DNA PCR Nasal C.pneumoniae (PCR) Magdiel Human Metapneumo PCR Nasal M.pneumoniae (PCR) Nasal SARS-CoV-2 (PCR) Salicylates < 6.0 Urine Opiates Screen Ur Oxycodone Screen Urine Methadone Screen Ur Propoxyphene Screen Acetaminophen < 10 L Ur Barbiturates Screen Ur Tricyclics Screen Ur Phencyclidine Scrn Ur Amphetamine Screen U Methamphetamines Scrn U Benzodiazepines Scrn Urine Cocaine Screen U Cannabinoids Screen Ethyl Alcohol < 5.0 12/18/22 12/18/22 19:16 19:51 WBC RBC Hgb Hct MCV MCH MCHC RDW Plt Count MPV Neut # (Auto) Lymph # (Auto) Jack # (Auto) Eos # (Auto) Baso # (Auto) Absolute Nucleated RBC Nucleated RBC % Sodium Potassium Chloride Carbon Dioxide Anion Gap BUN Creatinine Estimated GFR (MDRD) Glucose Calcium Total Bilirubin AST ALT Alkaline Phosphatase Total Protein Albumin Globulin Albumin/Globulin Ratio Lipase TSH Urine Color YELLOW Urine Clarity CLEAR Urine pH 6.0 Ur Specific [place] <=1.005 Urine Protein NEGATIVE Urine Glucose (UA) NEGATIVE Urine Ketones TRACE Urine Occult Blood TRACE-INTA Urine Nitrite POSITIVE H Urine Bilirubin NEGATIVE Urine Urobilinogen 0.2 (NORMAL) Ur Leukocyte Esterase NEGATIVE Urine RBC 0-5 Urine WBC 0-3 Ur Squamous Epith Cells RARE Squamous Urine Bacteria Few Ur Microscopic Review INDICATED Urine Culture Comments INDICATED Nasal Adenovirus (PCR) NOT DETECTED Nasal B. parapertussis DNA (PCR) NOT DETECTED Nasal Coronavir 229E PCR NOT DETECTED Nasal Coronavir HKU1 PCR NOT DETECTED Nasal Coronavir NL63 PCR NOT DETECTED Nasal Coronavir OC43 PCR NOT DETECTED Nasal Enterovir/Rhinovir PCR NOT DETECTED Nasal Influenza B PCR NOT DETECTED Nasal Influenza A PCR NOT DETECTED Nasal Parainfluen 1 PCR NOT DETECTED Nasal Parainfluen 2 PCR NOT DETECTED Nasal Parainfluen 3 PCR NOT DETECTED Nasal Parainfluen 4 PCR NOT DETECTED Nasal RSV (PCR) NOT DETECTED Nasal B.pertussis DNA PCR NOT DETECTED Nasal C.pneumoniae (PCR) NOT DETECTED Magdiel Human Metapneumo PCR NOT DETECTED Nasal M.pneumoniae (PCR) NOT DETECTED Nasal SARS-CoV-2 (PCR) NOT DETECTED Salicylates Urine Opiates Screen NEGATIVE Ur Oxycodone Screen NEGATIVE Urine Methadone Screen NEGATIVE Ur Propoxyphene Screen NEGATIVE Acetaminophen Ur Barbiturates Screen NEGATIVE Ur Tricyclics Screen NEGATIVE Ur Phencyclidine Scrn NEGATIVE Ur Amphetamine Screen NEGATIVE U Methamphetamines Scrn NEGATIVE U Benzodiazepines Scrn NEGATIVE Urine Cocaine Screen NEGATIVE U Cannabinoids Screen NEGATIVE Ethyl Alcohol PD Medical Decision Making - ED course Complexity details: reviewed results, re-evaluated patient, considered differential ED course: 77-year-old male was brought to the emergency department for a psychiatric mental health exam. Brought in by [facility]. Over the last few days he has been increasingly emotionally labile at home with multiple outburst. Pounding his fist breaking his glasses. His housemates have been concerned for his own safety as well as the safety of the patient. For me the patient reports that he has severe insomnia and anxiety. He admits that he is very fearful of taking any medications. He is often hyperverbal and then will begin saying I am sorry I am sorry I wish I was . Patient was hospitalized at [facility] in late October for similar behaviors. The patient is quite fixated on anxiety and insomnia. It is not clear to this provider if he has suicidal ideation actively. We did obtain a CBC electrolytes urinalysis and urine drug screen. Per my interpretation no acute findings though the urinalysis does show nitrites with a small amount of bacteria. The patient does endorse some mild dysuria. Given this finding I have ordered Vantin.However we will ask DCR to see the patient. 2049: I have spoken with Oralia DCR on-call. She is going to obtain further ancillary information and then speak with the patient via tablet 2144: pt is signed out to my nighttime colleague to follow up on DCR recommendations Departure - Departure Disposition: [facility] Psych Hosp/Unit DC/Xfer Clinical Impression: Depression, Anxiety, Suicidal ideation, Emotional instability Condition: Stable
[2022-12-18] MEDS ORDERED: LORazepam 1 MG TABLET PO STA (19:56)
[2022-12-18] MEDS ORDERED: CEFPODOXIME PROXETIL 100 MG TABLET PO STA (20:02)
[2022-12-18 20:45] LABS: B. PARAPERTUSSIS- RESP PCR PAN NOT DETECTED; B. PERTUSSIS- RESP PCR PANEL NOT DETECTED; C. PNEUMONIAE- RESP PCR PANEL NOT DETECTED; CORONAVIRUS 229E-RESP PCR NOT DETECTED; CORONAVIRUS HKU1-RESP PCR NOT DETECTED; CORONAVIRUS NL63-RESP PCR NOT DETECTED; CORONAVIRUS OC43-RESP PCR NOT DETECTED; HUMAN METAPNEUMOVIRUS NOT DETECTED; INFLUENZA A- RESP PCR PANEL NOT DETECTED; INFLUENZA B - RESP PCR PANEL NOT DETECTED; M. PNEUMONIAE- RESP PCR PANEL NOT DETECTED; PARAINFLUENZA VIRUS 1 NOT DETECTED; PARAINFLUENZA VIRUS 2 NOT DETECTED; PARAINFLUENZA VIRUS 3 NOT DETECTED; PARAINFLUENZA VIRUS 4 NOT DETECTED; RHINOVIRUS/ENTEROVIRUS NOT DETECTED; RSV- RESP PCR PANEL NOT DETECTED; SARS-CoV-2 -RESP PCR PANEL NOT DETECTED
[2022-12-18] MEDS ORDERED: traZODone 50 MG TABLET PO STA (21:56)
--- NOTE | 2022-12-19 02:36 | ED Physician Documentation ---
ED Addendum - Addendum Addendum: 12/19/22 02:33 The patient was interviewed by the DCR on-call. Of particular concern is the patient having reported emotional lability with fits of anger at times described by the patient's roommate and as reported in the police report. The patient does not express direct suicidal intent but does reportedly make vague statements about wanting to be . He has had anxiety and also insomnia. The patient is reluctant to take medications per the prior providers report. This combination makes it concerning for the patient to be comfortably allowed on his own at this point due to the uncertainty of what his actions will be. As such the DCR felt he was detainable. Refer to her report in particular for further explanation. The patient did except a trazodone medication here this evening. This had been suggested by a prior psychiatric evaluation. This may be helpful for her to help him with sleep as well. No beds were readily available at this time late at night. The DCR states she will tell the patient of the intention to detain him and that he will be here for the night and she will resume looking for facilities tomorrow morning which will be more likely successful.
[2022-12-19] MEDS ORDERED: traZODone 50 MG TABLET PO STA (07:43)
[2022-12-19] MEDS ORDERED: LORazepam 1 MG TABLET PO STA (07:43)
--- NOTE | 2022-12-19 12:06 | ED Physician Documentation ---
ED Addendum - Addendum Addendum: 12/19/22 12:04 In brief 77-year-old male was brought to the emergency department by [facility] for emotional outbursts. Though not directly suicidal his behavior had alarmed his housemates. He is very fearful of [facility] medicine and taking medications. He is fixated on insomnia and his anxiety. Ultimately was seen by DCR last night who felt that he met the criteria for detainment. DCR has been working with outside psychiatric facilities and they are arranging paperwork. The patient has been accepted to [facility]. I have personally evaluated the patient this morning and his behavior is unchanged from yesterday. He is hyperverbal, very fixated on insomnia. However he has been compliant with ER staff direction and has not required any chemical or physical restraints. anticipate transfer to [facility] this afternoon
[2022-12-19] MEDS ORDERED: polyethylene glycoL 3350 17 GM PACKET PO STA (13:58)
[2022-12-19 14:46] VITALS: BP 174/86
== END 2022-12-19 15:07 ==
LOC: ED 18:22
DX: Z04.6 Encounter for general psychiatric examination, requested by authority (principal); R82.71 Bacteriuria; F32.A Depression, unspecified; F41.9 Anxiety disorder, unspecified; R45.851 Suicidal ideations; R45.86 Emotional lability; Z20.822 Contact with and (suspected) exposure to COVID-19
CPT/HCPCS: 36415; 80053; 80306; 80307; 81001; 83690; 84443; 85025; 87086; 87633; 93005; 99285; A9270; G0480; J8499; 80320; 80329; 81003

== ENCOUNTER 2023-01-06 05:47 | Outpatient (CLI) | payer MEDICARE, OTHER | END 2023-01-06 05:48 | disposition critical access hospital (66) | LOC: EMS 05:47 | DX: R33.9 Retention of urine, unspecified (principal); G47.00 Insomnia, unspecified | CPT/HCPCS: A0425; A0429 ==

== ENCOUNTER 2023-01-06 06:27 | Emergency (ER) | payer MEDICARE, OTHER ==
[2023-01-06 06:50] LABS: BILIRUBIN,URINE NEGATIVE (NEGATIVE); GLUCOSE, URINE (UA) NEGATIVE (NEGATIVE); KETONES,URINE (UA) NEGATIVE (NEGATIVE); LEUKOCYTE ESTERASE, URINE NEGATIVE (NEGATIVE); NITRITE,URINE NEGATIVE (NEGATIVE); OCCULT BLOOD,URINE MODERATE (NEGATIVE); PROTEIN,URINE NEGATIVE (NEGATIVE); UROBILINOGEN,URINE 0.2 (NORMAL) E.U./dL (NORMAL)
[2023-01-06 06:55] LABS: CLARITY,URINE CLEAR (CLEAR)
[2023-01-06 06:59] LABS: BACTERIA,URINE Few /HPF (None Seen); SQUAMOUS EPITHELIAL CELL,UR NONE SEEN (<= Few); WBC,URINE 0-3 /HPF (0-3)
--- NOTE | 2023-01-06 07:45 | ED Physician Documentation ---
PD HPI MALE - Stated complaint Stated Complaint: MALE - Chief complaint Chief Complaint: Abd Pain - History obtained from History obtained from: Patient - Additional information Additional information: The patient comes to the emergency department chief complaint of urinary retention and anxiety. He states he was last able to urinate normally yesterday but that he has only been able to have a dribble or trickle of urine since, despite a strong urge to urinate. The patient denies any fevers or chills. No nausea or vomiting. No abdominal pain. He does state that he has had occasional issues with urinary retention before, as he does have prostatic hypertrophy. He states that whenever he cannot urinate, he gets extremely anxious and that he has been very anxious overnight and its been difficult to sleep. He does not take anything for anxiety anymore because he states "nothing works". No other complaints at this time. PD PAST MEDICAL HISTORY - Past Medical History Cardiovascular: None Respiratory: None Neuro: None Endocrine/Autoimmune: None GI: None : Retention HEENT: None Psych: Anxiety, Other Musculoskeletal: None Derm: None - Past Surgical History Past Surgical History: Yes General: Other - Present Medications Home Medications: Ambulatory Orders Medication Instructions Recorded Confirmed Zolpidem Tartrate [Ambien] 10 mg PO HS 01/06/23 01/06/23 hydrOXYzine pamoate [Hydroxyzine 50 mg PO DAILY 01/06/23 01/06/23 Pamoate] risperiDONE [Risperdal] 1.5 mg PO HS 01/06/23 01/06/23 - Allergies Allergies/Adverse Reactions: Allergies Allergy/AdvReac Type Severity Reaction Status Date / Time citric acid Allergy Unknown Verified 11/03/22 08:03 Corticosteroids Allergy Unknown Verified 11/03/22 08:03 (Glucocorticoids) - Social History Does the pt smoke?: No Smoking Status: Never smoker Does the pt drink ETOH?: No Does the pt have substance abuse?: No - Immunizations Immunizations are current?: No Immunizations: TDAP >10years/unknown, Other immun not current - POLST Patient has POLST: No PD ED PE NORMAL - Vitals Vital signs reviewed: Yes - General General: Alert and oriented X 3, Well developed/nourished, Other (Moderately anxious, otherwise no apparent distress.) - HEENT HEENT: Atraumatic, PERRL, EOMI, Moist mucous membranes - Neck Neck: Supple, no meningeal sign - Cardiac Cardiac: RRR, No murmur, Strong equal pulses - Respiratory Respiratory: No respiratory distress, Clear bilaterally - Abdomen Abdomen: Soft, Non tender, Non distended - Male Male : Other (Normal male genitalia. Syed catheter is in place at the time of my exam.) - Derm Derm: Normal color, Warm and dry, No rash - Extremities Extremities: No deformity - Neuro Neuro: Alert and oriented X 3 - Psych Psych: Normal mood, Normal affect Results - Vitals Vitals: Vital Signs - 24 hr 01/06/23 01/06/23 06:36 06:41 Temperature 37.1 C Heart Rate 65 73 Respiratory 17 20 Rate Blood Pressure 150/76 H 150/76 H O2 Saturation 96 99 Oxygen O2 Source Room air - Labs Labs: Laboratory Tests 01/06/23 06:42 Urine Color YELLOW Urine Clarity CLEAR Urine pH 6.0 Ur Specific [place] 1.010 Urine Protein NEGATIVE Urine Glucose (UA) NEGATIVE Urine Ketones NEGATIVE Urine Occult Blood MODERATE H Urine Nitrite NEGATIVE Urine Bilirubin NEGATIVE Urine Urobilinogen 0.2 (NORMAL) Ur Leukocyte Esterase NEGATIVE Urine RBC 11-25 H Urine WBC 0-3 Ur Squamous Epith Cells NONE SEEN Urine Bacteria Few Urine Culture Comments NOT INDICATED PD Medical Decision Making - ED course Complexity details: reviewed results, re-evaluated patient, considered differential, d/w patient ED course: The patient was somewhat anxious but otherwise appeared stable. The catheter was placed and initially drained several 100 cc of urine. The patient was given a leg bag and advised that he will need to follow-up with urology, with whom he is already established. We have discussed the timeline for keeping the catheter in, which should not be more than a week. If he cannot see his urologist in that timeframe, he does have an appointment coming up in 5 days with his primary care provider and the catheter can be taken out in their office instead. If they cannot or will not do this, and then he will have to return to the emergency department. His UA shows no infection. I have advised the patient that I am willing to give him something for anxiety here, but he is declined, stating that nothing ever works and he does not wish to have anything. We have discussed the usual indications for return. Departure - Departure Disposition: 01 Home, Self Care Clinical Impression: Urinary retention, Anxiety Condition: Stable Instructions: ED Catheter Care [place], ED Retention Urinary Male Follow-Up: Murray Hernandez MD [Physician No Access] - Comments: Your urinalysis looks good. Catheter has been placed in your bladder to drain the bladder and relieve your bladder doing the work of urination for now. This is only a temporary measure and should not be left in place for more than the Next week. Please call the urology office that you are already established with and let them know that you are in the ER and that a temporary Syed catheter had to be placed because you were retaining urine. Please tell them you need to follow-up with the urologist within the week to be further evaluated and have your catheter removed. If they are unwilling or unable to see you in this timeframe, then please have your doctor [facility] If they cannot do this, then please return to the emergency department.. Most likely at that time, your bladder will begin working normally again and you will be able to urinate on your own. Please be sure to drink plenty of fluids. As far as your anxiety, we have offered you treatment for your anxiety but since you do not feel that these medications are likely to work and do not wish to be treated for this, we will let you go home. Please keep your appointment with your primary doctor on Wednesday to discuss referral to a mental health provider.
[2023-01-06 07:52] VITALS: BP 155/82
== END 2023-01-06 07:56 | disposition home or self-care (01) ==
LOC: EDUNIT# → ED 06:27
DX: R33.9 Retention of urine, unspecified (principal); F41.9 Anxiety disorder, unspecified
CPT/HCPCS: 51702; 81001; 87086; 99283

== ENCOUNTER 2023-01-06 19:14 | Outpatient (CLI) | payer MEDICARE, OTHER | END 2023-01-06 19:20 | disposition EMS.NT | LOC: EMS 19:14 | DX: Z03.89 Encounter for observation for other suspected diseases and conditions ruled out (principal) ==

== ENCOUNTER 2023-01-06 20:19 | Outpatient (CLI) | payer MEDICARE, OTHER | END 2023-01-06 23:59 | disposition critical access hospital (66) | LOC: EMS 20:19 | DX: T83.031A Leakage of indwelling urethral catheter, initial encounter (principal); R33.9 Retention of urine, unspecified; R39.89 Other symptoms and signs involving the genitourinary system; R39.15 Urgency of urination | CPT/HCPCS: A0425; A0429 ==

== ENCOUNTER 2023-01-06 20:57 | Emergency (ER) | payer MEDICARE, OTHER ==
--- NOTE | 2023-01-06 21:54 | ED Physician Documentation ---
History of Present Illness - Stated complaint Stated Complaint: CATHETER OBSTRUCTION - Chief complaint Chief Complaint: General - History obtained from History obtained from: Patient - Additonal information Additional information: Patient was treated and released from this emergency department yesterday for urinary tension and had a Townsend catheter placed, was discharged with the catheter still in place. He returns to the emergency department tonight complaining of sensation at the catheter might be malfunctioning. He says that tonight, while he was sitting at home, he found that he was suddenly sitting in a puddle of fluid and he did not know how it got there. He presumed that this was the catheter leaking. At no time, however, did he have sensation of urge to urinate, suprapubic pain or fullness. He is asymptomatic on arrival to the emergency department Review of Systems GI: denies: Abdominal Pain PD PAST MEDICAL HISTORY - Past Medical History Cardiovascular: None Respiratory: None Neuro: None Endocrine/Autoimmune: None GI: None : Retention HEENT: None Psych: Anxiety, Other Musculoskeletal: None Derm: None - Past Surgical History Past Surgical History: Yes General: Other - Present Medications Home Medications: Ambulatory Orders Medication Instructions Recorded Confirmed Zolpidem Tartrate [Ambien] 10 mg PO HS 01/06/23 01/06/23 hydrOXYzine pamoate [Hydroxyzine 50 mg PO DAILY 01/06/23 01/06/23 Pamoate] risperiDONE [Risperdal] 1.5 mg PO HS 01/06/23 01/06/23 - Allergies Allergies/Adverse Reactions: Allergies Allergy/AdvReac Type Severity Reaction Status Date / Time citric acid Allergy Unknown Verified 01/06/23 21:05 Corticosteroids Allergy Unknown Verified 01/06/23 21:05 (Glucocorticoids) - Social History Does the pt smoke?: No Smoking Status: Never smoker Does the pt drink ETOH?: No Does the pt have substance abuse?: No - Immunizations Immunizations are current?: No Immunizations: TDAP >10years/unknown, Other immun not current - POLST Patient has POLST: No PD ED PE NORMAL - Vitals Vital signs reviewed: Yes - General General: Alert and oriented X 3, No acute distress, Well developed/nourished - Abdomen Abdomen: Soft, Non tender - Male Male : Other (townsend catheter is in place as is the thigh anchor) Results - Vitals Vitals: Oxygen O2 Source Room air PD Medical Decision Making - ED course Complexity details: considered differential, d/w patient ED course: Patient is asymptomatic on arrival. The ED RN was able to deflate the balloon and found that it was filled with the appropriate amount (10 mL) of fluid, and this was we instilled into the balloon. Next, the ED RN was able to flush sterile water into the bladder via the catheter, and the same volume was then able to be withdrawn. During subsequent observation in the emergency department, patient is noted to have urine output into the Townsend catheter bag without any evidence of leakage. I discussed this with the patient, and that the catheter appears to be working well. He is not certain that the liquid he was sitting in was necessarily urine and he says perhaps something else had spilled and he was simply incorrectly presuming that it was urine. Return precautions were discussed. Departure - Departure Disposition: 01 Home, Self Care Clinical Impression: Townsend catheter in place Condition: Good Instructions: ED Catheter Care Townsend Comments: Your Townsend catheter appears to be functioning well tonight. The nurse in the emergency department was able to deflate and reinflate the balloon without any difficulty. They were able to flush sterile fluid in 2 your bladder through the catheter with immediate withdrawal through the catheter of the same volume of fluid, which would indicate the catheter is functioning correctly. Discharge Date/Time: 01/06/23 22:15
[2023-01-06 22:15] VITALS: BP 131/69
== END 2023-01-06 22:15 | disposition home or self-care (01) ==
LOC: EDUNIT# → ED 20:57
DX: Z46.6 Encounter for fitting and adjustment of urinary device (principal); R33.9 Retention of urine, unspecified; F41.9 Anxiety disorder, unspecified
CPT/HCPCS: 51702; 81001; 87086; 99282; 99283

== ENCOUNTER 2023-01-16 14:13 | Emergency (ER) | payer MEDICARE, OTHER ==
[2023-01-16 14:31] VITALS: BP 128/73
--- NOTE | 2023-01-16 14:49 | ED Physician Documentation ---
History of Present Illness - Stated complaint Stated Complaint: MALE - Chief complaint Chief Complaint: General - Additonal information Additional information: Patient here due to malfunction of urinary catheter bag. The bag itself is le aking but it has been draining fine from the Syed catheter and tubing. He has not had any dysuria or pelvic or penile pain. No flank pain, no fever or chills. He would like to beg attached to the left leg rather than the right and would like a leg bag instead. No other issues today. He has follow-up with urology for voiding trial in about a week. Review of Systems Constitutional: reports: Reviewed and negative Cardiac: reports: Reviewed and negative Respiratory: reports: Reviewed and negative GI: reports: Reviewed and negative : reports: Reviewed and negative PD PAST MEDICAL HISTORY - Past Medical History Past Medical History: Yes Cardiovascular: None Respiratory: None Neuro: None Endocrine/Autoimmune: None GI: None : Retention HEENT: None Psych: Anxiety, Other Musculoskeletal: None Derm: None - Past Surgical History Past Surgical History: Yes General: Other - Present Medications Home Medications: Ambulatory Orders Medication Instructions Recorded Confirmed Zolpidem Tartrate [Ambien] 10 mg PO HS 01/06/23 01/06/23 hydrOXYzine pamoate [Hydroxyzine 50 mg PO DAILY 01/06/23 01/06/23 Pamoate] risperiDONE [Risperdal] 1.5 mg PO HS 01/06/23 01/06/23 - Allergies Allergies/Adverse Reactions: Allergies Allergy/AdvReac Type Severity Reaction Status Date / Time citric acid Allergy Unknown Verified 01/16/23 14:31 Corticosteroids Allergy Unknown Verified 01/16/23 14:31 (Glucocorticoids) ibuprofen AdvReac Nausea Verified 01/16/23 14:31 - Social History Does the pt smoke?: No Smoking Status: Never smoker Does the pt drink ETOH?: No Does the pt have substance abuse?: No - Immunizations Immunizations are current?: No Immunizations: TDAP >10years/unknown, Other immun not current - POLST Patient has POLST: No PD ED PE NORMAL - Vitals Vital signs reviewed: Yes - General General: Alert and oriented X 3, No acute distress, Well developed/nourished - HEENT HEENT: Atraumatic, Pharynx benign - Cardiac Cardiac: RRR, No murmur - Respiratory Respiratory: No respiratory distress, Clear bilaterally - Abdomen Abdomen: Normal bowel sounds, Soft, Non tender, Non distended - Male Male : Other (Syed catheter in place, draining clear yellow urine. There is leaking from urine bag but the tubing is functioning well.) - Back Back: No CVA TTP - Derm Derm: Normal color, Warm and dry, No rash Results - Vitals Vitals: Vital Signs - 24 hr 01/16/23 14:27 Temperature 36.7 C Heart Rate 78 Respiratory 16 Rate Blood Pressure 128/73 O2 Saturation 96 Oxygen O2 Source Room air PD Medical Decision Making - ED course Complexity details: d/w patient, d/w family ED course: Patient presented with issues with his urinary catheter bag. The catheter i tself is functioning well however therefore we did not have to replace this. We changed him over to a new urinary leg bag and discussed home management of this. The patient is already scheduled to follow-up with urology for voiding trial for possible removal of the Syed catheter in the future. Return precautions reviewed in detail with patient and his family member. Departure - Departure Disposition: 01 Home, Self Care Clinical Impression: Syed catheter problem Qualifiers: Encounter type: initial encounter Qualified Code(s): T83.9XXA - Unspecified complication of genitourinary prosthetic device, implant and graft, initial encounter Condition: Good Comments: We have changed your Syed catheter bag to a smaller leg bag and attached it to the left leg as requested. This bag will need to be changed more frequently. You may also exchange operator to the larger bag if preferred. Please follow-up with urologist as scheduled for voiding trial and possible removal of the catheter.
== END 2023-01-16 15:08 | disposition home or self-care (01) ==
LOC: ED 14:13
DX: T83.038A Leakage of other urinary catheter, initial encounter (principal)
CPT/HCPCS: 99281; 99282

== ENCOUNTER 2023-02-23 12:53 | Outpatient (CLI) | payer MEDICARE, OTHER | END 2023-02-23 12:54 | disposition home or self-care (01) | LOC: LAB.S 12:53 | PROVIDERS: ATTEND Urology | DX: N40.1 Benign prostatic hyperplasia with lower urinary tract symptoms (principal) | CPT/HCPCS: 87086; 87181 ==

== ENCOUNTER 2023-05-21 09:52 | Outpatient (CLI) | payer MEDICARE, OTHER ==
--- NOTE | 2023-05-21 13:19 | XRAY Report ---
PROCEDURE: Lumbar Spine Complete INDICATIONS: LOWER EXTREMITIES PERIPHERAL NEUROPATHY TECHNIQUE: 4 views of the lumbar spine were acquired. COMPARISON: None. FINDINGS: Bones: 5 [id number] vertebrae are present. There is normal bony alignment. No vertebral body compression fractures. No suspicious bony lesions. Generalized osteopenia. Multilevel disc space na rrowing and degenerative endplate changes are seen. There is multilevel facet hypertrophy. Oblique vi ews demonstrate no pars interarticularis defects. Soft tissues: Overlying bowel gas pattern is normal. Mild aortic atherosclerotic calcifications. IMPRESSION: Moderate multilevel spondylosis. Reviewed by: Vinh Timmons MD on 05/21/2023 1:17 PM PDT Approved by: Vinh Timmons MD on 05/21/2023 1:17 PM PDT Station ID: [id number]
[2023-05-21 14:55] LABS: BASOPHILS % (AUTO) 0.7 %; EOSINOPHILS # (AUTO) 0.2 10^3/uL (0.0-0.7); EOSINOPHILS % (AUTO) 2.8 %; HCT - HEMATOCRIT 43.2 % (42.0-52.0); HGB - HEMOGLOBIN 13.7 g/dL (14.0-18.0); LYMPHOCYTES # (AUTO) 1.5 10^3/uL (1.5-3.5); MEAN CORPUSCULAR HEMOGLOBIN 28.6 pg (27.0-31.0); MEAN CORPUSCULAR HGB CONC 31.7 g/dL (32.0-36.0); MEAN CORPUSCULAR VOLUME 90.2 fL (80.0-94.0); MEAN PLATELET VOLUME 11.3 fL (7.4-11.4); MONOCYTES # (AUTO) 0.5 10^3/uL (0.0-1.0); MONOCYTES % (AUTO) 8.6 %; NEUTROPHILS # (AUTO) 3.2 10^3/uL (1.5-6.6); NEUTROPHILS % (AUTO) 59.2 %; PLT - PLATELET COUNT 238 10^3/uL (130-450); RED BLOOD COUNT 4.79 10^6/uL (4.70-6.10); RED CELL DISTRIBUTION WIDTH 14.8 % (12.0-15.0); WHITE BLOOD COUNT 5.4 x10^3/uL (4.8-10.8)
[2023-05-21 15:13] LABS: ALBUMIN 4.3 g/dL (3.2-5.5); BILIRUBIN,TOTAL 0.9 mg/dL (0.2-1.0); CALCIUM 9.4 mg/dL (8.5-10.3); CREATININE 0.8 mg/dL (0.6-1.3); CRP - C-REACTIVE PROTEIN 0.6 mg/dL (<0.5); POTASSIUM 4.3 mmol/L (3.5-4.5); TOTAL PROTEIN 6.5 g/dL (6.4-8.9)
[2023-05-21 15:23] LABS: THYROID STIMULATING HORMONE 1.59 uIU/mL (0.34-5.60)
[2023-05-21 18:15] LABS: ESTIMATED AVERAGE GLUCOSE 114 mg/dL (70-100); HEMOGLOBIN A1c% 5.6 % (4.27-6.07)
[2023-05-25 15:09] LABS: A/G RATIO 1.7 (0.7-1.7); ALBUMIN 3.7 g/dL (2.9-4.4); ALPHA-1-GLOBULIN 0.3 g/dL (0.0-0.4); ALPHA-2-GLOBULIN 0.7 g/dL (0.4-1.0); BETA GLOBULIN 0.8 g/dL (0.7-1.3); GAMMA GLOBULIN 0.7 g/dL (0.4-1.8); GLOBULIN TOTAL 2.3 g/dL (2.2-3.9); IMMUNOGLOBULIN A (IGA) 102 mg/dL (61-437); IMMUNOGLOBULIN G (IGG) 742 mg/dL (603-1613); IMMUNOGLOBULIN M (IGM) 33 mg/dL (15-143); M-SPIKE Not Observed g/dL (Not Observed)
== END 2023-05-21 09:53 | disposition home or self-care (01) ==
LOC: DI.S 09:52
PROVIDERS: ATTEND Internal Medicine
DX: M47.816 Spondylosis without myelopathy or radiculopathy, lumbar region (principal); R33.9 Retention of urine, unspecified; G62.9 Polyneuropathy, unspecified; R03.0 Elevated blood-pressure reading, without diagnosis of hypertension
CPT/HCPCS: 36415; 80053; 82607; 82746; 82784; 83036; 84155; 84165; 84443; 85025; 86140; 86334

== ENCOUNTER 2023-06-13 21:05 | Emergency (ER) | payer MEDICARE, OTHER ==
[2023-06-13 22:04] LABS: BILIRUBIN,URINE NEGATIVE (NEGATIVE); GLUCOSE, URINE (UA) NEGATIVE (NEGATIVE); KETONES,URINE (UA) NEGATIVE (NEGATIVE); LEUKOCYTE ESTERASE, URINE LARGE (NEGATIVE); NITRITE,URINE POSITIVE (NEGATIVE); OCCULT BLOOD,URINE LARGE (NEGATIVE); PH,URINE 5.5 PH (5.0-7.5); PROTEIN,URINE TRACE mg/dL (NEGATIVE); UROBILINOGEN,URINE 0.2 (NORMAL) E.U./dL (NORMAL)
[2023-06-13 22:05] LABS: CLARITY,URINE HAZY (CLEAR)
[2023-06-13 22:12] LABS: BACTERIA,URINE Many /HPF (None Seen); RBC,URINE TNTC /HPF (0-5); SQUAMOUS EPITHELIAL CELL,UR NONE SEEN (<= Few); WBC,URINE >25 /HPF (0-3)
[2023-06-13] MEDS ORDERED: cefTRIAXone 1 GM VIAL IM STA (23:05)
[2023-06-13] MEDS ORDERED: LIDOCAINE 1% 2 ML VIAL MC ONE (23:05)
--- NOTE | 2023-06-13 23:08 | ED Physician Documentation ---
History of Present Illness - Stated complaint Stated Complaint: - Chief complaint Chief Complaint: UTI - History obtained from History obtained from: Patient - Additonal information Additional information: 77-year-old man with history of chronic indwelling Townsend presents with urinary symptoms for the past few days of dysuria, suprapubic discomfort. denies fever, back pain, nausea. PD PAST MEDICAL HISTORY - Past Medical History Cardiovascular: None Respiratory: None Neuro: None, Peripheral neuropathy Endocrine/Autoimmune: None GI: None, Chronic constipation : Benign prostate hypertrophy, Retention HEENT: None Psych: Anxiety, Other Musculoskeletal: None Derm: None - Past Surgical History Past Surgical History: Yes General: Other - Present Medications Home Medications: Ambulatory Orders Medication Instructions Recorded Confirmed hydrOXYzine pamoate [Hydroxyzine 50 mg PO TID 01/06/23 06/13/23 Pamoate] Cefpodoxime Proxetil [Vantin] 200 mg PO Q12H #28 tablet 06/13/23 clonazePAM [Clonazepam] 0.75 mg PO HS 06/13/23 06/13/23 - Allergies Allergies/Adverse Reactions: Allergies Allergy/AdvReac Type Severity Reaction Status Date / Time citric acid Allergy Unknown Verified 06/13/23 21:07 Corticosteroids Allergy Unknown Verified 06/13/23 21:07 (Glucocorticoids) ibuprofen AdvReac Nausea Verified 06/13/23 21:07 - Social History Does the pt smoke?: No Smoking Status: Never smoker Does the pt drink ETOH?: No Does the pt have substance abuse?: No - Immunizations Immunizations are current?: No Immunizations: TDAP >10years/unknown, Other immun not current - POLST Patient has POLST: No PD ED PE NORMAL - Vitals Vital signs reviewed: Yes - General General: Alert and oriented X 3, No acute distress, Well developed/nourished - HEENT HEENT: Atraumatic, PERRL, EOMI - Abdomen Abdomen: Non tender, Non distended - Male Male : Other (townsend in place - changed for fresh townsend) Results - Vitals Vitals: Vital Signs - 24 hr 06/13/23 21:07 Temperature 36.8 C Heart Rate 63 Respiratory 16 Rate Blood Pressure 160/76 H O2 Saturation 100 Oxygen O2 Source Room air - Labs Labs: Laboratory Tests 06/13/23 21:50 Urine Color YELLOW Urine Clarity HAZY Urine pH 5.5 Ur Specific [place] <=1.005 Urine Protein TRACE Urine Glucose (UA) NEGATIVE Urine Ketones NEGATIVE Urine Occult Blood LARGE H Urine Nitrite POSITIVE H Urine Bilirubin NEGATIVE Urine Urobilinogen 0.2 (NORMAL) Ur Leukocyte Esterase LARGE H Urine RBC TNTC H Urine WBC >25 H Ur Squamous Epith Cells NONE SEEN Urine Bacteria Many H Ur Microscopic Review INDICATED Urine Culture Comments INDICATED PD Medical Decision Making - ED course ED course: 77-year-old man presented with dysuria for the past couple of days. Townsend catheter changed and urine sample shows UTI. First dose of antibiotics given here and antibiotics sent to pharmacy. Return precautions given. Plan to follow-up with primary care provider. Departure - Departure Disposition: Home, Self Care Clinical Impression: UTI (urinary tract infection) Condition: Stable Instructions: ED UTI Cystitis Male Prescriptions: Cefpodoxime Proxetil [Vantin] 200 mg PO Q12H #28 tablet Comments: You were seen in the emergency department for UTI. Electronic prescription for antibiotics was sent to [facility]. Please follow-up with your primary care provider and return to the emergency department if you have any new or worsening symptoms or other concerns.
[2023-06-13 23:34] VITALS: BP 142/77; O2SAT 99
--- NOTE | 2023-06-16 17:00 | ED Physician Documentation ---
ED Addendum - Addendum Addendum: 06/16/23 17:00 Cx reviewed, cefpodoxime ok for both.
== END 2023-06-13 23:26 | disposition home or self-care (01) ==
LOC: ED 21:05
DX: N39.0 Urinary tract infection, site not specified (principal); Z96.0 Presence of urogenital implants
CPT/HCPCS: 51702; 81001; 81003; 87077; 87086; 87181; 99283

== ENCOUNTER 2023-06-22 18:50 | Outpatient (CLI) | payer MEDICARE, OTHER ==
[2023-06-22 19:25] LABS: CREATININE 0.8 mg/dL (0.6-1.3)
== END 2023-06-22 18:51 | disposition home or self-care (01) ==
LOC: LAB 18:50
PROVIDERS: ATTEND Internal Medicine
DX: R33.9 Retention of urine, unspecified (principal); R10.9 Unspecified abdominal pain; G89.29 Other chronic pain
CPT/HCPCS: 36415; 82565; 87086

== ENCOUNTER 2023-06-25 11:06 | Outpatient (CLI) | payer MEDICARE, OTHER ==
--- NOTE | 2023-06-25 14:15 | CT Report ---
PROCEDURE: ABDOMEN/PELVIS W INDICATIONS: URINARY RETENTION, ABD PAIN CONTRAST: OPTI 320 100ML TECHNIQUE: After the administration of IV and oral contrast, 5 mm thick sections acquired from the diaphragms to the symphysis. 5 mm thick coronal and sagittal reformats were acquired. For radiation dose reducti on, the following was used: automated exposure control, adjustment of mA and/or kV according to manjula ent size. COMPARISON: None FINDINGS: Image quality: Good Lower chest: Basal scarring/atelectasis. No hiatal hernia. Heart size within normal limits. Solid organs: There are hepatic cysts. Subcentimeter lesions are too small to characterize, probably also cysts. Gallbladder is unremarkable. No pathologic dilation of the pancreatic duct. The CBD is pr ominent, possibly senescent, measuring up to 6 to 7 mm, correlate with LFTs. No splenomegaly. A right adrenal nodule is present measuring 1 cm. Left adrenal thickening also seen. No hydronephrosis. Vessels and lymph nodes: Main portal vein is patent. No abdominal aortic aneurysm. There are atherosc lerotic calcifications. No pathologic lymph nodes by size criteria. Bowel and peritoneum: No evidence of small bowel obstruction. Moderate to large fecal loading. No pat hologic ascites or drainable abscess. Body wall: Tiny fat-containing left inguinal hernia. Pelvis: Bladder is thick walled, trabeculated, with a left Hutch diverticulum. A catheter is in place . Air in the bladder is probably iatrogenic. The prostate is heterogeneous, enlarged, with areas of e nhancement. Bones: No acute or suspicious osseous finding. IMPRESSION: No hydronephrosis. However, the bladder is trabeculated, with a left Hutch diverticulum, and thick wa lled. Evaluation is difficult due to underdistention. A Syed is in place. The prostate is enlarged a nd heterogeneous enhancing. Findings are likely due to chronic obstruction. Please correlate with pos sible cystoscopy, PSA, and if prostate MRI if indicated. Right adrenal nodule measuring 1 cm, most commonly an adenoma. This could be followed on subsequent i maging or confirmed on adrenal protocol imaging. Other findings as above. Reviewed by: Hugo Khan MD on 06/25/2023 2:13 PM PDT Approved by: Hugo Khan MD on 06/25/2023 2:13 PM PDT Station ID: [id number]
[2023-06-25] MEDS ORDERED: IOVERSOL 320 100 ML VIAL IVP ONE (15:16)
[2023-06-25] MEDS ORDERED: BARIUM SULFATE 450 ML BOTTLE PO ONE (15:17)
== END 2023-06-25 11:07 | disposition home or self-care (01) ==
LOC: DI 11:06
PROVIDERS: ATTEND Internal Medicine
DX: R33.9 Retention of urine, unspecified (principal); R10.9 Unspecified abdominal pain; N32.89 Other specified disorders of bladder; N32.3 Diverticulum of bladder; N40.1 Benign prostatic hyperplasia with lower urinary tract symptoms; R33.8 Other retention of urine; E27.8 Other specified disorders of adrenal gland; K76.89 Other specified diseases of liver; I70.90 Unspecified atherosclerosis; K40.90 Unilateral inguinal hernia, without obstruction or gangrene, not specified as recurrent
CPT/HCPCS: 74177; A9270; Q9967

== ENCOUNTER 2023-09-19 13:56 | Emergency (ER) | payer MEDICARE, OTHER ==
[2023-09-19 14:48] LABS: BASOPHILS % (AUTO) 0.8 %; EOSINOPHILS # (AUTO) 0.1 10^3/uL (0.0-0.7); EOSINOPHILS % (AUTO) 1.5 %; HCT - HEMATOCRIT 41.9 % (42.0-52.0); HGB - HEMOGLOBIN 13.1 g/dL (14.0-18.0); LYMPHOCYTES # (AUTO) 1.4 10^3/uL (1.5-3.5); LYMPHOCYTES % (AUTO) 27.3 %; MEAN CORPUSCULAR HGB CONC 31.3 g/dL (32.0-36.0); MEAN CORPUSCULAR VOLUME 92.7 fL (80.0-94.0); MEAN PLATELET VOLUME 10.6 fL (7.4-11.4); MONOCYTES # (AUTO) 0.5 10^3/uL (0.0-1.0); MONOCYTES % (AUTO) 8.5 %; NEUTROPHILS # (AUTO) 3.2 10^3/uL (1.5-6.6); NEUTROPHILS % (AUTO) 61.3 %; PLT - PLATELET COUNT 207 10^3/uL (130-450); RED BLOOD COUNT 4.52 10^6/uL (4.70-6.10); RED CELL DISTRIBUTION WIDTH 13.6 % (12.0-15.0); WHITE BLOOD COUNT 5.3 x10^3/uL (4.8-10.8)
--- NOTE | 2023-09-19 15:14 | ED Physician Documentation ---
PD HPI MHE - Stated complaint Stated Complaint: SI - Chief complaint Chief Complaint: MHE - History obtained from History obtained from: Patient, Family - History of Present Illness Primary symptom: Suicidal ideation Pain level max: 0 Pain level now: 0 Contributing factors: No: Substance abuse - ETOH - Additional information Additional information: Patient is a 77-year-old male who presents to the emergency department complaining of longstanding suicidal ideation. He states that he had a attempted suicide in October by cutting horizontally across the volar aspect of his wrist. He states that it "just clotted". He states that he lives alone and can only sleep if it is quiet. He states sounds keep him awake. He states he has tried risperdal with no success. He also tried Seroquel but it gave him urinary retention. He states he was on Ambien for a while but that did not seem to help much either. He states he has been seen recently in 2 other ERs because he was "feeling like he was going to be manic". He does have a public health staff nurse in [place] that he sees, does not know when his next appointment is. Patient states that he has a Yazdanism and does not believe in suicide, but is scared that he may attempt to commit suicide. He states that he may try to find an artery in his wrist with a razor blade he states he could look up the anatomy. He also states that as a last resort he could try stabbing himself in the chest with a fruit knife. He states again he does not want to commit suicide and he does not feel like he will commit suicide but is concerned if he goes home that the thoughts will become worse. Patient also states that he feels that the psychiatrist that he has seen in the past are stuck in the [facility] and [facility] stage of physics and that he feels he needs a psychiatrist that is more well versed in quantum physics and entanglement. Review of Systems Constitutional: denies: Fever, Chills GI: denies: Vomiting, Diarrhea Skin: denies: Rash Musculoskeletal: denies: Neck pain, Back pain Neurologic: denies: Focal weakness, Numbness, Syncope, Seizure, Headache PD PAST MEDICAL HISTORY - Past Medical History Past Medical History: Yes Cardiovascular: None Respiratory: None Neuro: None, Peripheral neuropathy Endocrine/Autoimmune: None GI: None, Chronic constipation : Benign prostate hypertrophy, Retention HEENT: None Psych: Anxiety, Other Musculoskeletal: None Derm: None - Past Surgical History Past Surgical History: Yes General: Other - Present Medications Home Medications: Ambulatory Orders Medication Instructions Recorded Confirmed hydrOXYzine pamoate [Hydroxyzine 50 mg PO TID 01/06/23 06/13/23 Pamoate] Cefpodoxime Proxetil [Vantin] 200 mg PO Q12H #28 tablet 06/13/23 clonazePAM [Clonazepam] 0.75 mg PO HS 06/13/23 06/13/23 - Allergies Allergies/Adverse Reactions: Allergies Allergy/AdvReac Type Severity Reaction Status Date / Time beet Allergy Itching Verified 09/19/23 14:22 broccoli Allergy Itching Verified 09/19/23 14:22 cephalexin [From Keflex] Allergy Anxiety Verified 09/19/23 14:22 citric acid Allergy Unknown Verified 06/13/23 21:07 Corticosteroids Allergy Unknown Verified 06/13/23 21:07 (Glucocorticoids) Fruit Allergy Itching Verified 09/19/23 14:22 gluten Allergy Itching Verified 09/19/23 14:22 lactase [From Dairy Aid] Allergy Itching Verified 09/19/23 14:22 menthol Allergy Itching Verified 09/19/23 14:22 tomato Allergy Itching Verified 09/19/23 14:22 ibuprofen AdvReac Nausea Verified 06/13/23 21:07 metronidazole [From Flagyl] AdvReac Anxiety Verified 09/19/23 14:22 - Social History Does the pt smoke?: No Smoking Status: Never smoker Does the pt drink ETOH?: No Does the pt have substance abuse?: No - Immunizations Immunizations are current?: No Immunizations: TDAP >10years/unknown, Other immun not current - POLST Patient has POLST: No PD ED PE NORMAL - Vitals Vital signs reviewed: Yes - General General: Alert and oriented X 3, No acute distress, Well developed/nourished - HEENT HEENT: PERRL, Moist mucous membranes - Neck Neck: Supple, no meningeal sign - Cardiac Cardiac: RRR, Strong equal pulses - Respiratory Respiratory: No respiratory distress, Clear bilaterally - Abdomen Abdomen: Soft, Non tender, Non distended - Derm Derm: Warm and dry - Extremities Extremities: No edema, No calf tenderness / cord - Neuro Neuro: Alert and oriented X 3 - Psych Psych: Normal mood, Normal affect Results - Vitals Vitals: Vital Signs - 24 hr 09/19/23 14:07 Temperature 36.9 C Heart Rate 72 Respiratory 16 Rate Blood Pressure 154/74 H O2 Saturation 99 Oxygen O2 Source Room air - EKG (time done) 1610 EKG releavant findings:: EKG personally interpreted by author of this note. Relevant findings are: Rate: Rate (enter#) (60) Rhythm: NSR [place]: Normal Intervals: Normal [place] QRS: Normal Ischemia: Normal ST segments - Labs Labs: Laboratory Tests 09/19/23 09/19/23 09/19/23 14:41 14:41 15:43 WBC 5.3 RBC 4.52 L Hgb 13.1 L Hct 41.9 L MCV 92.7 MCH 29.0 MCHC 31.3 L RDW 13.6 Plt Count 207 MPV 10.6 Neut # (Auto) 3.2 Lymph # (Auto) 1.4 L Webb # (Auto) 0.5 Eos # (Auto) 0.1 Baso # (Auto) 0.0 Absolute Nucleated RBC 0.00 Nucleated RBC % 0.0 Sodium 138 Potassium 4.1 Chloride 104 Carbon Dioxide 29 Anion Gap 5.0 L BUN 18 Creatinine 0.8 Estimated GFR (MDRD) 94 Glucose 113 H Calcium 9.2 Magnesium 1.8 Total Bilirubin 0.7 AST 12 ALT 8 L Alkaline Phosphatase 52 Total Protein 6.0 L Albumin 4.3 Globulin 1.7 L Albumin/Globulin Ratio 2.5 H Lipase 10 L Vitamin B12 800 Folate 6.8 TSH 0.91 Urine Color YELLOW Urine Clarity CLEAR Urine pH 6.0 Ur Specific [place] 1.015 Urine Protein NEGATIVE Urine Glucose (UA) NEGATIVE Urine Ketones NEGATIVE Urine Occult Blood NEGATIVE Urine Nitrite POSITIVE H Urine Bilirubin NEGATIVE Urine Urobilinogen 1 (NORMAL) Ur Leukocyte Esterase SMALL H Urine RBC 0-5 Urine WBC 6-10 H Ur Epithelial Cells None Seen Ur Squamous Epith Cells NONE SEEN Urine Bacteria Few Ur Microscopic Review INDICATED Urine Culture Comments INDICATED Salicylates < 1.5 Urine Opiates Screen NEGATIVE Ur Oxycodone Screen NEGATIVE Urine Methadone Screen NEGATIVE Ur Propoxyphene Screen NEGATIVE Acetaminophen 1.6 Ur Barbiturates Screen NEGATIVE Ur Tricyclics Screen NEGATIVE Ur Phencyclidine Scrn NEGATIVE Ur Amphetamine Screen NEGATIVE U Methamphetamines Scrn NEGATIVE U Benzodiazepines Scrn POSITIVE H Urine Cocaine Screen NEGATIVE U Cannabinoids Screen POSITIVE H Ethyl Alcohol < 10.0 SARS-CoV-2 (PCR) 09/19/23 16:00 WBC RBC Hgb Hct MCV MCH MCHC RDW Plt Count MPV Neut # (Auto) Lymph # (Auto) Webb # (Auto) Eos # (Auto) Baso # (Auto) Absolute Nucleated RBC Nucleated RBC % Sodium Potassium Chloride Carbon Dioxide Anion Gap BUN Creatinine Estimated GFR (MDRD) Glucose Calcium Magnesium Total Bilirubin AST ALT Alkaline Phosphatase Total Protein Albumin Globulin Albumin/Globulin Ratio Lipase Vitamin B12 Folate TSH Urine Color Urine Clarity Urine pH Ur Specific [place] Urine Protein Urine Glucose (UA) Urine Ketones Urine Occult Blood Urine Nitrite Urine Bilirubin Urine Urobilinogen Ur Leukocyte Esterase Urine RBC Urine WBC Ur Epithelial Cells Ur Squamous Epith Cells Urine Bacteria Ur Microscopic Review Urine Culture Comments Salicylates Urine Opiates Screen Ur Oxycodone Screen Urine Methadone Screen Ur Propoxyphene Screen Acetaminophen Ur Barbiturates Screen Ur Tricyclics Screen Ur Phencyclidine Scrn Ur Amphetamine Screen U Methamphetamines Scrn U Benzodiazepines Scrn Urine Cocaine Screen U Cannabinoids Screen Ethyl Alcohol SARS-CoV-2 (PCR) NOT DETECTED PD Medical Decision Making - ED course Complexity details: reviewed results, re-evaluated patient, considered differential, d/w patient, d/w family (friend), d/w [facility] ascp consultant ED course: Patient with continued suicidal ideation at home. Has had 2 suicide attempts in October. He is requesting voluntary hospitalization. Social work was consulted and is looking for placement. There are no beds available. Telepsychiatry was consulted, they recommend trazodone at night for sleep and continuing his home medications. Will continue to look for placement tomorrow. Patient will be boarded in the emergency department. Patient signed out to the [facility] emergency department physician. This document was made in part using voice recognition software. While efforts are made to proofread this document, sound alike and grammatical errors may occur. Departure - Departure Clinical Impression: Suicidal ideation Condition: Stable Forms: PCP List
[2023-09-19 15:22] LABS: ACETAMINOPHEN 1.6 ug/mL; ALBUMIN 4.3 g/dL (3.2-5.5); ALBUMIN/GLOBULIN RATIO 2.5 (1.0-2.2); ALKALINE PHOSPHATASE 52 IU/L (42-121); ALT ALANINE AMINOTRANSFERASE 8 IU/L (10-60); AST ASPARTATE AMINOTRANSFERASE 12 IU/L (10-42); BILIRUBIN,TOTAL 0.7 mg/dL (0.2-1.0); BUN - BLOOD UREA NITROGEN 18 mg/dL (6-20); CALCIUM 9.2 mg/dL (8.5-10.3); CARBON DIOXIDE - CO2 29 mmol/L (21-32); CHLORIDE 104 mmol/L (101-111); CREATININE 0.8 mg/dL (0.6-1.3); ETOH - ETHANOL < 10.0 mg/dL; GFR - MDRD 94 (>89); GLUCOSE 113 mg/dL (74-104); LIPASE 10 U/L (11-82); MAGNESIUM 1.8 mg/dL (1.7-2.3); POTASSIUM 4.1 mmol/L (3.5-4.5); SODIUM 138 mmol/L (135-145)
[2023-09-19 15:30] LABS: THYROID STIMULATING HORMONE 0.91 uIU/mL (0.34-5.60)
[2023-09-19 15:50] LABS: MUDS CUTOFF CONCENTRATIONS CUTOFF CONC BELOW:
[2023-09-19 15:54] LABS: BILIRUBIN,URINE NEGATIVE (NEGATIVE); GLUCOSE, URINE (UA) NEGATIVE (NEGATIVE); KETONES,URINE (UA) NEGATIVE (NEGATIVE); LEUKOCYTE ESTERASE, URINE SMALL (NEGATIVE); NITRITE,URINE POSITIVE (NEGATIVE); OCCULT BLOOD,URINE NEGATIVE (NEGATIVE); PROTEIN,URINE NEGATIVE (NEGATIVE); UROBILINOGEN,URINE 1 (NORMAL) E.U./dL (NORMAL)
[2023-09-19 15:55] LABS: CLARITY,URINE CLEAR (CLEAR)
[2023-09-19 15:55] LABS: SALICYLATE < 1.5 mg/dL
[2023-09-19 16:05] LABS: BACTERIA,URINE Few /HPF (None Seen); RBC,URINE 0-5 /HPF (0-5); THC CANNABINOID SCREEN, URINE POSITIVE (NEGATIVE)
[2023-09-19 16:06] LABS: AMPHETAMINE SCREEN,URINE NEGATIVE (NEGATIVE); BARBITURATE SCREEN,UR NEGATIVE (NEGATIVE); BENZODIAZEPINES SCREEN, URINE POSITIVE (NEGATIVE); COCAINE SCREEN URINE NEGATIVE (NEGATIVE); METHADONE SCREEN, URINE NEGATIVE (NEGATIVE); METHAMPHETAMINES SCREEN, URINE NEGATIVE (NEGATIVE); OPIATE SCREEN, URINE NEGATIVE (NEGATIVE); OXYCODONE SCREEN, URINE NEGATIVE (NEGATIVE); PROPOXYPHENE SCREEN, URINE NEGATIVE (NEGATIVE); SQUAMOUS EPITHELIAL CELL,UR NONE SEEN (<= Few); TRICYCLIC ANTIDEPRESSANT,URINE NEGATIVE (NEGATIVE)
[2023-09-19 16:07] LABS: EPITHELIAL CELLS,UR None Seen /HPF (<= Few)
--- NOTE | 2023-09-19 19:29 | TELEPSYCH PHYS NOTE ---
[facility] Telepsych Consult Consult Date: 09/19/23 Name of Referring Provider:: Dr. Miranda Reason for Consult: Suicidal Ideation - Suicide Risk Sreening (ASQ Tool) In the past few weeks, have you wished you were ?: Yes In the past few weeks, have you felt that you or your family would be better off if you were ?: Yes In the past week, have you been having thoughts about killing yourself?: Yes Have you ever tried to kill yourself?: Yes - Assessment Language: Venezuelan Instructional Specialist Required: No Cultural, Restorationist or Spiritual Preferences: Voodoo Chief Complaint: "I've been having a nervous breakdown for about a year. I have a disorder that I have that I have never heard of described anywhere before.Anxiety is increasing. It is at the point now where if I stay home I know I will kill myself." History of Present Illness: Tariq is a 77-year-old male who presents to the ER with worsening anxiety and suicidal ideation. He reports that he has been living in a state of overwhelming anxiety for the last year. He says that it has interfered with his daily quality of life and ability to focus. He has not been sleeping well at night. He says that his primary provider has been increasing his clonazepam, but he says that his anxiety continues to get worse. He says that he is having a mental breakdown is afraid that he is going to try to end his life. "If I had a gun, I would have already shot myself." He does report a history of 2 past suicide attempts by overdose and by cutting his wrist. No hallucinations reported. No drug or alcohol abuse. No homicidal ideation but does continue to feel suicidal at time of assessment. Suicide Ideation - Homicide Ideation - Self Harm: Patient reports suicidal ideation without specific plan. No homicidal ideation. Psychiatric History - Treatment History: Patient reports a history of anxiety. He says he has seen many psychiatrists and therapists throughout the years. He has a history of 2 suicide attempts and psychiatric hospitalizations in the past. Community Resources Accessed: [facility] History/ History of suicide: None reported Nutritional Status: No nutritional concerns - Medication & Allergies Home Medications: Ambulatory Orders Medication Instructions Recorded Confirmed hydrOXYzine pamoate [Hydroxyzine 50 mg PO TID 01/06/23 06/13/23 Pamoate] Cefpodoxime Proxetil [Vantin] 200 mg PO Q12H #28 tablet 06/13/23 clonazePAM [Clonazepam] 0.75 mg PO HS 06/13/23 06/13/23 Allergies/Adverse Reactions: Allergies Allergy/AdvReac Type Severity Reaction Status Date / Time beet Allergy Itching Verified 09/19/23 14:22 broccoli Allergy Itching Verified 09/19/23 14:22 cephalexin [From Keflex] Allergy Anxiety Verified 09/19/23 14:22 citric acid Allergy Unknown Verified 06/13/23 21:07 Corticosteroids Allergy Unknown Verified 06/13/23 21:07 (Glucocorticoids) Fruit Allergy Itching Verified 09/19/23 14:22 gluten Allergy Itching Verified 09/19/23 14:22 lactase [From Dairy Aid] Allergy Itching Verified 09/19/23 14:22 menthol Allergy Itching Verified 09/19/23 14:22 tomato Allergy Itching Verified 09/19/23 14:22 ibuprofen AdvReac Nausea Verified 06/13/23 21:07 metronidazole [From Flagyl] AdvReac Anxiety Verified 09/19/23 14:22 - Drug & Alcohol History Does patient have Drug/ETOH history or addictive behavior?: No Use: Uses substance without health or social issues: NONE ( ) Use Issues: Anxiety Disorder, Sleep Disorder Abuse: Recurrent use of substance despite neg consequences: NONE Dependence: Experiences withdrawal or developed tolerances: NONE - Trauma Does the patient have a history of trauma, abuse, neglect or explotation?: No - Personal Information Does the patient have a history or present tendencies for violence?: None History or present tendencies for violence (Notes): None Services History: None Does patient have any Legal Charges or Investigations?: No Environment & Living Situation - Social, Peer-Group (Note): At home Environment & Living Situation - Social, Peer-Group (Notes): Lives alone currently. Marital Status - Family Circumstances: . Patient was for 14 years and never had any children. 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 Collateral - Interdisciplinary Input: ER records reviewed. - Medical History Psychiatric: reports: Anxiety, Other Neurological: reports: None, Peripheral neuropathy Eyes, Ears, Nose, Throat: reports: None Cardiovascular: reports: None Respiratory: reports: None Gastrointestinal: reports: None, Chronic constipation Urinary: reports: Benign prostate hypertrophy, Retention Musculoskeletal: reports: None Skin: reports: None - Surgical History General: reports: Other Childhood History: No history of trauma or abuse. No known developmental issues. - Mental Status Exam Appearance and Attire: 77-year-old male who is sitting up on chair and is neatly dressed. Hygiene and grooming are appropriate for situation. Attitude and Behavior: Anxious but cooperative Speech: Normal rate and rhythm Affect and Mood: "Anxious" and affect is congruent Association and Thought Process: Logical, organized Thought Content: Endorses suicidal ideation. No homicidal ideation. No paranoia or delusions noted. Perception: No auditory or visual hallucinations. Sensorium, memory and orientation: Awake, alert and oriented to person, place and situation. Intellectual - Cognitive functioning: Above average Insight and Judgement: good/intact Emotional and Behavioral Functioning: increasing anxiety Ability to Self-Care: Independent - Personal Goals Short-term Goals: "get help so I don't hurt myself" - Risk/Protective Factors Risk Factors: Inadequate social supports Protective Factors / Internal: Restorationist beliefs, Fear of or the actual act of killing self Protective Factors / External: Cultural, spiritual and/or moral attitudes against suicide - Plan Impression/Risk Assessment: 77-year-old male presents to the ER saying he is having a "nervous breakdown". He says that his anxiety has been increasing over the last year and is getting in the way of his day to day living. He lives alone currently and has been afraid that he is going to take his own life. "If I had a gun, I would have shot myself already." He has a history of two suicide attempts in the past. One attempt was just last October 2022. He is not sleeping and does not feel his medications have been helpful. He is not currently seeing a therapist. No hallucinations. No drug or alcohol abuse. No homicidal ideation but continues to endorse SI at time of assessment. He is a high risk to himself and would benefit from hospitalization for safety and stabilization. Treatment - Therapy Recommendations: Inpatient psychiatric hospitalization is recommended due to suicidal ideation. Pharmacological Recommendations: Continue current home psychiatric medications. May try trazodone 50mg po for sleep as he says this has been helpful in the past. - Time Spent & Provider Location Telepsych consultation conducted via videoconferencing: Yes List names and roles of persons who participated in consult: Franny Mckeon NP Telepsych Provider Location: [place] Time Spent (Minutes): 45
[2023-09-19] MEDS ORDERED: traZODone 50 MG TABLET PO STA (20:47)
[2023-09-19] MEDS ORDERED: clonazePAM 0.5 MG TABLET PO PRN (21:18)
[2023-09-19] MEDS ORDERED: ACETAMINOPHEN 500 MG TABLET PO PRN (21:19)
--- NOTE | 2023-09-20 02:25 | ED Physician Documentation ---
ED Addendum - Addendum Addendum: Patient care assumed at shift change. Patient has been sleeping and cooperative through my shift. He has been accepted to [facility]. COBRA's have been signed. Patient care will be turned over to a.m. physician at shift change. Departure - Departure Disposition: [facility] Psych Hosp/Unit DC/Xfer Clinical Impression: Suicidal ideation Condition: Stable Forms: PCP List
[2023-09-20] MEDS ORDERED: PANTOPRAZOLE 40 MG TABLET PO SCH (07:00)
[2023-09-20 07:18] VITALS: BP 146/95; O2SAT 99
== END 2023-09-20 09:00 ==
LOC: ED 13:56
DX: R45.851 Suicidal ideations (principal)
CPT/HCPCS: 36415; 80053; 80306; 80307; 80320; 80329; 81001; 81003; 82607; 82746; 83690; 83735; 84443; 85025; 87086; 87635; 93005; 99285

== ENCOUNTER 2023-09-20 18:41 | Emergency (ER) | payer MEDICARE, OTHER ==
--- NOTE | 2023-09-20 18:54 | ED Physician Documentation ---
History of Present Illness - Stated complaint Stated Complaint: MHE - Chief complaint Chief Complaint: MHE - History obtained from History obtained from: Patient, EMS - History of Present Illness Pain level max: 0 Pain level now: 0 - Additonal information Additional information: Patient was seen here last night for anxiety and suicidal ideation. He was kept in the emergency department overnight, seen by telepsychiatry. Recommended inpatient hospitalization. The patient was accepted to [facility]. The ambulance took him down to [facility]. When he arrived there [facility] stated that they could not take him because he had a catheter in place. The patient has a chronic indwelling Syed catheter. Therefore the ambulance was turned around and brought back to the hospital here. Patient has no new complaints. Review of Systems Constitutional: denies: Fever, Chills GI: denies: Vomiting PD PAST MEDICAL HISTORY - Past Medical History Cardiovascular: None Respiratory: None Neuro: None, Peripheral neuropathy Endocrine/Autoimmune: None GI: None, Chronic constipation : Benign prostate hypertrophy, Retention HEENT: None Psych: Anxiety, Other Musculoskeletal: None Derm: None - Past Surgical History Past Surgical History: Yes General: Other - Present Medications Home Medications: Ambulatory Orders Medication Instructions Recorded Confirmed hydrOXYzine pamoate [Hydroxyzine 50 mg PO TID PRN 01/06/23 09/20/23 Pamoate] Cefpodoxime Proxetil [Vantin] 200 mg PO Q12H #28 tablet 06/13/23 09/20/23 clonazePAM [Clonazepam] 1 mg PO TID PRN 06/13/23 09/20/23 Fluvoxamine Maleate 25 mg PO HS 09/20/23 09/20/23 Ketamine HCl [Praketamide] 1 applic TOP QID PRN 09/20/23 09/20/23 Ketoconazole 2% Cream [Nizoral 2% 1 applic TOP BID 09/20/23 09/20/23 Cream] Lidocaine [Lidocaine Pain Relief] 1 applic TOP PRN PRN 09/20/23 09/20/23 Sodium Chloride [Salt Tab] 1 gm PO DAILY 09/20/23 09/20/23 diphenhydrAMINE HCL [Itch Stopping] 1 applic TOP PRN PRN 09/20/23 09/20/23 - Allergies Allergies/Adverse Reactions: Allergies Allergy/AdvReac Type Severity Reaction Status Date / Time beet Allergy Itching Verified 09/20/23 18:45 broccoli Allergy Itching Verified 09/20/23 18:45 cephalexin [From Keflex] Allergy Anxiety Verified 09/20/23 18:45 citric acid Allergy Unknown Verified 09/20/23 18:45 Corticosteroids Allergy Unknown Verified 09/20/23 18:45 (Glucocorticoids) Fruit Allergy Itching Verified 09/20/23 18:45 gluten Allergy Itching Verified 09/20/23 18:45 lactase [From Dairy Aid] Allergy Itching Verified 09/20/23 18:45 menthol Allergy Itching Verified 09/20/23 18:45 tomato Allergy Itching Verified 09/20/23 18:45 ibuprofen AdvReac Nausea Verified 09/20/23 18:45 metronidazole [From Flagyl] AdvReac Anxiety Verified 09/20/23 18:45 - Social History Does the pt smoke?: No Smoking Status: Never smoker Does the pt drink ETOH?: No Does the pt have substance abuse?: No - Immunizations Immunizations are current?: No Immunizations: TDAP >10years/unknown, Other immun not current - POLST Patient has POLST: No PD ED PE NORMAL - Vitals Vital signs reviewed: Yes - General General: Alert and oriented X 3, No acute distress - HEENT HEENT: Moist mucous membranes - Neck Neck: Supple, no meningeal sign - Cardiac Cardiac: RRR - Respiratory Respiratory: No respiratory distress, Clear bilaterally - Abdomen Abdomen: Soft, Non tender, Non distended - Derm Derm: Warm and dry - Extremities Extremities: No edema - Neuro Neuro: Alert and oriented X 3 Results - Vitals Vitals: Vital Signs - 24 hr 09/20/23 18:45 Temperature 36.8 C Heart Rate 88 Respiratory 16 Rate Blood Pressure 130/82 H O2 Saturation 98 Oxygen O2 Source Room air PD Medical Decision Making - ED course Complexity details: considered differential, d/w patient ED course: Patient with continued suicidal ideation and anxiety. We will continue to look for placement. He does have a chronic indwelling Syed catheter that may make placement more difficult. Telepsychiatry reconsulted. Patient signed out to the oncoming emergency department physician. Departure - Departure Clinical Impression: Suicidal ideation, Anxiety Condition: Stable Forms: PCP List
[2023-09-20] MEDS ORDERED: traZODone 50 MG TABLET PO STA (21:44)
[2023-09-20] MEDS: clonazePAM 0.5 MG TABLET PO PRN (21:59)
[2023-09-21] MEDS: clonazePAM 0.5 MG TABLET PO PRN ×2 (04:07→13:06)
--- NOTE | 2023-09-21 09:44 | ED Physician Documentation ---
ED Addendum - Addendum Addendum: 09/21/23 09:40 The patient has been accepted to [facility]. They are aware that the patient has a Syed catheter. Nila our executive secretary social welfare states she talked with them and specifically noted that and they said that they are comfortable with that. EMTALA forms are filled out and we will arrange transport by [facility] for patient's safety. The patient is feeling out paperwork for that facility. They will then need to get back to us about timing for transfer but it does sound like an acceptance at that facility. Still a work in progress. Destination disposition: Patient is transferred to psychiatric facility in stable condition Diagnoses: 1. Depression 2. Suicidal ideation and anxiety
[2023-09-21 11:20] VITALS: BP 163/83; O2SAT 100
[2023-09-21] MEDS ORDERED: polyethylene glycoL 3350 17 GM PACKET PO STA (13:03)
[2023-09-21] MEDS ORDERED: DOCUSATE SODIUM 100 MG CAPSULE PO STA (13:03)
== END 2023-09-21 15:52 ==
LOC: ED 18:41
DX: R45.851 Suicidal ideations (principal); F41.9 Anxiety disorder, unspecified; F32.A Depression, unspecified
CPT/HCPCS: 36415; 80053; 80306; 80307; 81001; 81003; 82607; 82746; 83690; 83735; 84443; 85025; 87086; 87635; 93005; 99285; A9270; G0425; G0480; 80320; 80329

== ENCOUNTER 2023-10-09 20:49 | Emergency (ER) | payer MEDICARE, OTHER ==
[2023-10-09] MEDS ORDERED: LIDOCAINE JELLY 2% 6 ML JEL.PF.APP TOP STA (21:14)
--- NOTE | 2023-10-09 21:17 | ED Physician Documentation ---
PD HPI MALE - Stated complaint Stated Complaint: - Chief complaint Chief Complaint: Abd Pain - History obtained from History obtained from: Patient - Additional information Additional information: Patient presents from home by private vehicle for inability to void x 1 day. Patient has chronic indwelling Syed catheter and decided "to do my own voiding trial at home". He cut the line that holds the saline and removed his Syed catheter, but has not been able to void since this morning.Patient also request that we test his urine to see if his urinary tract infection has cleared up. He states that he recently completed a course of Omnicef. Review of Systems Constitutional: denies: Fever, Chills GI: reports: Abdominal Pain. denies: Nausea, Vomiting, Constipation, Diarrhea : reports: Unable to Void. denies: Dysuria, Frequency PD PAST MEDICAL HISTORY - Past Medical History Past Medical History: Yes Cardiovascular: None Respiratory: None Neuro: None, Peripheral neuropathy Endocrine/Autoimmune: None GI: None, Chronic constipation : Benign prostate hypertrophy, Retention HEENT: None Psych: Anxiety, Other Musculoskeletal: None Derm: None - Past Surgical History Past Surgical History: Yes General: Other - Present Medications Home Medications: Ambulatory Orders Medication Instructions Recorded Confirmed hydrOXYzine pamoate [Hydroxyzine 50 mg PO TID PRN 01/06/23 09/20/23 Pamoate] Cefpodoxime Proxetil [Vantin] 200 mg PO Q12H #28 tablet 06/13/23 09/20/23 clonazePAM [Clonazepam] 1 mg PO TID PRN 06/13/23 09/20/23 Fluvoxamine Maleate 25 mg PO HS 09/20/23 09/20/23 Ketamine HCl [Praketamide] 1 applic TOP QID PRN 09/20/23 09/20/23 Ketoconazole 2% Cream [Nizoral 2% 1 applic TOP BID 09/20/23 09/20/23 Cream] Lidocaine [Lidocaine Pain Relief] 1 applic TOP PRN PRN 09/20/23 09/20/23 Sodium Chloride [Salt Tab] 1 gm PO DAILY 09/20/23 09/20/23 diphenhydrAMINE HCL [Itch Stopping] 1 applic TOP PRN PRN 09/20/23 09/20/23 Ciprofloxacin HCl [Cipro] 500 mg PO BID #14 tablet 10/09/23 - Allergies Allergies/Adverse Reactions: Allergies Allergy/AdvReac Type Severity Reaction Status Date / Time beet Allergy Itching Verified 10/09/23 20:53 broccoli Allergy Itching Verified 10/09/23 20:53 cephalexin [From Keflex] Allergy Anxiety Verified 10/09/23 20:53 citric acid Allergy Unknown Verified 10/09/23 20:53 Corticosteroids Allergy Unknown Verified 10/09/23 20:53 (Glucocorticoids) Fruit Allergy Itching Verified 10/09/23 20:53 gluten Allergy Itching Verified 10/09/23 20:53 lactase [From Dairy Aid] Allergy Itching Verified 10/09/23 20:53 menthol Allergy Itching Verified 10/09/23 20:53 tomato Allergy Itching Verified 10/09/23 20:53 ibuprofen AdvReac Nausea Verified 10/09/23 20:53 metronidazole [From Flagyl] AdvReac Anxiety Verified 10/09/23 20:53 - Social History Does the pt smoke?: No Smoking Status: Never smoker Does the pt drink ETOH?: No Does the pt have substance abuse?: No - Immunizations Immunizations are current?: No Immunizations: TDAP >10years/unknown, Other immun not current - POLST Patient has POLST: No PD ED PE NORMAL - Vitals Vital signs reviewed: Yes - General General: Alert and oriented X 3, Well developed/nourished - Cardiac Cardiac: RRR, Strong equal pulses - Respiratory Respiratory: No respiratory distress, Clear bilaterally - Abdomen Abdomen: Soft, Other (suprapubic fullness) - Derm Derm: Normal color, Warm and dry, No rash - Extremities Extremities: No deformity, No tenderness to palpate, Normal ROM s pain - Neuro Neuro: Alert and oriented X 3, welding rod coater 2-12 intact, No motor deficit, Normal speech - Psych Psych: Normal mood, Normal affect Results - Vitals Vitals: Vital Signs - 24 hr 10/09/23 20:53 Temperature 36.8 C Heart Rate 79 Respiratory 16 Rate Blood Pressure 155/72 H O2 Saturation 100 Oxygen O2 Source Room air - Labs Labs: Laboratory Tests 10/09/23 21:51 Urine Color YELLOW Urine Clarity SL. CLOUDY Urine pH 7.0 Ur Specific [place] 1.010 Urine Protein NEGATIVE Urine Glucose (UA) NEGATIVE Urine Ketones NEGATIVE Urine Occult Blood TRACE-INTA Urine Nitrite POSITIVE H Urine Bilirubin NEGATIVE Urine Urobilinogen 1 (NORMAL) Ur Leukocyte Esterase TRACE H Urine RBC 0-5 Urine WBC 6-10 H Ur Squamous Epith Cells FEW Squamous Urine Bacteria Many H Urine Mucus Few Strands Urine Culture Comments INDICATED PD Medical Decision Making - ED course Complexity details: reviewed old records, reviewed results, re-evaluated patient, considered differential, d/w patient, d/w family ED course: Urinary retention after self removing Syed catheter. Suprapubic fullness present, patient is otherwise in no acute distress. Syed placed with drainage of slightly cloudy urine. Urinalysis shows nitrates, leukocyte esterase, WBCs, and many bacteria. Will change antibiotics to ciprofloxacin since patient does have indwelling Syed catheter. There are no recent urine cultures in our system for microbiology comparisons at this time. Patient was advised of urinalysis results, antibiotics were sent to pharmacy of choice. ED return precautions discussed at bedside. Advised that patient not remove his Syed catheter unless otherwise instructed to by urology. Departure - Departure Disposition: 01 Home, Self Care Clinical Impression: Urinary retention, UTI (urinary tract infection) Condition: Stable Instructions: ED UTI Cystitis Male Prescriptions: Ciprofloxacin HCl [Cipro] 500 mg PO BID #14 tablet Forms: PCP List
[2023-10-09 22:00] LABS: BILIRUBIN,URINE NEGATIVE (NEGATIVE); GLUCOSE, URINE (UA) NEGATIVE (NEGATIVE); KETONES,URINE (UA) NEGATIVE (NEGATIVE); LEUKOCYTE ESTERASE, URINE TRACE (NEGATIVE); NITRITE,URINE POSITIVE (NEGATIVE); OCCULT BLOOD,URINE TRACE-INTA (NEGATIVE); PROTEIN,URINE NEGATIVE (NEGATIVE); UROBILINOGEN,URINE 1 (NORMAL) E.U./dL (NORMAL)
[2023-10-09 22:01] LABS: CLARITY,URINE SL. CLOUDY (CLEAR)
[2023-10-09 22:07] LABS: BACTERIA,URINE Many /HPF (None Seen); MUCUS,URINE Few Strands; RBC,URINE 0-5 /HPF (0-5); SQUAMOUS EPITHELIAL CELL,UR FEW Squamous (<= Few)
[2023-10-09] MEDS ORDERED: CIPROFLOXACIN 250 MG TABLET PO STA (22:14)
[2023-10-09 22:32] VITALS: BP 143/73; O2SAT 98
== END 2023-10-09 22:32 | disposition home or self-care (01) ==
LOC: ED 20:49
DX: R33.9 Retention of urine, unspecified (principal); N39.0 Urinary tract infection, site not specified
CPT/HCPCS: 51702; 81001; 87077; 87086; 87181; 99283; 99284; A9270

== ENCOUNTER 2023-12-10 08:00 | Outpatient (CLI) | payer MEDICARE, OTHER | END 2023-12-10 23:59 | disposition home or self-care (01) | LOC: LAB.S 08:00 | PROVIDERS: ATTEND Registered Nurse | DX: R19.7 Diarrhea, unspecified (principal) | CPT/HCPCS: 87045; 87046; 87177; 87209; 87427; 87493 ==

== ENCOUNTER 2024-01-11 13:55 | Outpatient (CLI) | payer MEDICARE, OTHER ==
[2024-01-11 22:28] LABS: ESTIMATED AVERAGE GLUCOSE 114 mg/dL (70-100); HEMOGLOBIN A1c% 5.6 % (4.27-6.07)
== END 2024-01-11 13:56 | disposition home or self-care (01) ==
LOC: LAB.S 13:55
PROVIDERS: ATTEND Nurse Practitioner
DX: F41.1 Generalized anxiety disorder (principal); G62.9 Polyneuropathy, unspecified; Z79.899 Other long term (current) drug therapy
CPT/HCPCS: 36415; 83036

== ENCOUNTER 2024-07-10 14:39 | Outpatient (CLI) | payer MEDICARE, OTHER ==
[2024-07-10 20:29] LABS: BASOPHILS # (AUTO) 0.1 10^3/uL (0.0-0.1); BASOPHILS % (AUTO) 1.1 %; EOSINOPHILS # (AUTO) 0.1 10^3/uL (0.0-0.7); EOSINOPHILS % (AUTO) 1.9 %; HCT - HEMATOCRIT 43.2 % (42.0-52.0); HGB - HEMOGLOBIN 13.6 g/dL (14.0-18.0); LYMPHOCYTES # (AUTO) 1.1 10^3/uL (1.5-3.5); LYMPHOCYTES % (AUTO) 24.1 %; MEAN CORPUSCULAR HEMOGLOBIN 29.1 pg (27.0-31.0); MEAN CORPUSCULAR HGB CONC 31.5 g/dL (32.0-36.0); MEAN CORPUSCULAR VOLUME 92.5 fL (80.0-94.0); MEAN PLATELET VOLUME 11.5 fL (7.4-11.4); MONOCYTES # (AUTO) 0.4 10^3/uL (0.0-1.0); MONOCYTES % (AUTO) 7.7 %; NEUTROPHILS # (AUTO) 3.1 10^3/uL (1.5-6.6); PLT - PLATELET COUNT 189 10^3/uL (130-450); RED BLOOD COUNT 4.67 10^6/uL (4.70-6.10); RED CELL DISTRIBUTION WIDTH 14.4 % (12.0-15.0); WHITE BLOOD COUNT 4.7 x10^3/uL (4.8-10.8)
[2024-07-10 20:53] LABS: FERRITIN 42.5 ng/mL (23.9-336.2)
== END 2024-07-10 14:40 | disposition home or self-care (01) ==
LOC: LAB.S 14:39
PROVIDERS: ATTEND Internal Medicine
DX: D64.9 Anemia, unspecified (principal)
CPT/HCPCS: 36415; 82607; 82728; 83540; 84466; 85025